=== PATIENT | female | born 1935 | race Caucasian/White ===

== ENCOUNTER 2016-08-23 13:17 | Inpatient (IN) | payer OTHER ==
[~2016-08-23] VITALS: Ht 162.6 cm; Wt 61.2 kg
--- NOTE | 2016-08-23 14:36 | DIAGNOSTIC IMAGING REPORT ---
PROCEDURE: XR CHEST 1 VIEW INDICATION: TRAUMA TECHNIQUE: Supine AP view (1350 hours). COMPARISON: Compared to chest x-ray and left ribs on 09/24/2013. FINDINGS: Lungs are clear. Heart and mediastinum are normal. Thorax is normal. There is a 4.5 cm ovoid radiopaque density overlying the left lateral axial and breast. This may be internal or external (although technologist reports nothing limited physical interrogation). IMPRESSION: 1. There is 4.5 cm radiopaque density overlying the left lateral axilla and breast (uncertain etiology). 2. Otherwise negative chest. No evidence of acute process.
--- NOTE | 2016-08-23 15:16 | DIAGNOSTIC IMAGING REPORT ---
PROCEDURE: XR HIP 2VW W W/O AP PELVIS-RT INDICATION: TRAUMA/INJURY TECHNIQUE: AP view of the pelvis and hips with lateral view of the right hip. COMPARISON: None. FINDINGS: RIGHT HIP: There is a minimally displaced oblique intertrochanteric fracture the right femur which extends into the proximal femoral shaft. Right hip joint is normal. PELVIS: Pelvis is normal. IMPRESSION: 1. There is a minimally displaced intertrochanteric fracture of the right femur which extends significantly into the proximal femoral shaft.
--- NOTE | 2016-08-23 17:30 | Consultation Report ---
Admission Admit Date 08/23/16 History Chief Complaint R hip pain History of Present Illness 80y severely demented F with well controlled DM2, HTN autoimmune hepatitis, recent loss of appitite and newly noted slurred speach was an independant ambulator who enjoyed dancing at baseline and sustained a witnessed GLF, inability to WB and R hip pain. Brought to [facility] ED x-rays showed mildly displaced R 3 part intertrochanteric hi9p fx. Daughter with POA denies hx of DVT/PE, infection. See my full dictated consult note for additional details, PMH, Social and other Hx. Patient History 1. Dementia Social History Daughter Debbie with POA, Guardian is son Abhinav. Medications and Allergies Medications see dictation Allergies Coded Allergies: Clarithromycin (08/23/16) Latex (08/23/16) Uncoded Allergies: errythromycin (08/23/16) PCN (08/23/16) Review of Systems Constitutional Denies: Fever. Neurological Other (slurred speech). Physical Exam General Appearance Alert, Cooperative, No acute distress, completely disoriented HEENT Atraumatic Extremities R LE externally rotated, tender at hip and pain with any hip ROM Skin No Breakdown, No Significant Lesions, intact at R hip and foot, normal toe hair distribution Neurological Sensation intact, fires R AD&PF & E&FHL. Psych/Mental Status Mood normal, Confused LAB Results Laboratory Tests 08/23 08/23 1705 1620 Chemistry Plasma Sodium (136 - 145 mmol/L) 142 Plasma Potassium (3.5 - 5.1 mmol/L) 3.6 Plasma Chloride (98 - 107 mmol/L) 103 CO2 (Enzymatic) (21 - 32 mmol/L) 31 BUN (7 - 18 mg/dL) 15 Creatinine (0.6 - 1.3 mg/dL) 0.9 Est GFR ( Amer) (mL/min) >60 Est GFR (Non-Af Amer) (mL/min) >60 Glucose (70 - 110 mg/dL) 132 Plasma Calcium (8.5 - 10.1 mg/dL) 8.8 Total Bilirubin (0.0 - 1.0 mg/dL) 0.3 AST (15 - 37 U/L) 38 ALT (12 - 78 U/L) 54 Alkaline Phosphatase (46 - 116 U/L) 112 Total Protein (6.4 - 8.2 g/dL) 7.8 Albumin (3.3 - 5.0 g/dL) 3.5 Coagulation INR (0.8 - 1.2) 1.0 APTT (24 - 34 SECONDS) 33 Hematology WBC (4.5 - 11.5 K/uL) 11.1 RBC (4.00 - 5.20 M/uL) 4.31 Hgb (12.0 - 16.0 gm/dL) 14.9 Hct (36.0 - 46.0 %) 45.2 MCV (80 - 100 fL) 105 MCH (26 - 34 pg) 35 RDW (11.6 - 14.8 %) 13.7 Neut % (Auto) (50 - 75 %) 88.5 Lymph % (Auto) (25 - 40 %) 5.8 Claiborne % (Auto) (3 - 14 %) 5.2 Eos % (Auto) (0 - 4 %) 0.4 Baso % (Auto) (0 - 2 %) 0.1 Plt Count, EDTA (150 - 400 K/uL) 257 PUBS MCHC (31 - 37 g/dL) 33 Urines Urine Color Pending Urine Appearance Pending Urine pH Pending Ur Specific Mackey Pending Urine Protein Pending Urine Ketones Pending Urine Blood Pending Urine Nitrite Pending Urine Bilirubin Pending Urine Urobilinogen Pending Ur Leukocyte Esterase Pending Urine RBC Pending Urine WBC Pending Ur Epithelial Cells Pending Urine Bacteria Pending Urine Glucose Pending Imaging 3 part R interitroch fx. No hip DJD. CXR clear lungs, nml mediastial structures. 4.5 cm oval density may be internal or external per radiologist report. Assessment and Plan Problem List 1. Displaced intertrochanteric fracture of right femur, initial encounter for closed fracture Onset Date 08/23/16 Status Acute Plan Admit to hospitalist for medical clearance including work up of possible syncopal event, loss of appatite and newly noted slurred speech. Consented and marked for closed reduction and internal fixation R intertrochantericv "hip:" fx. PAQRQ held with daughter and [id number]. Risks, including, bleeding, infection, , and failure to obtain the goals of decreased pain, restored WB funtion, decreased risks of DVT/PE/decubitus ulcers, pneumonia etc discussed. All questions invited and answered. Surgery planned for tomorrow mid morning assuming medically cleared. NPO after MN.
--- NOTE | 2016-08-23 17:46 | ED NURSING NOTES ---
Clinical Report - Nurses [facility] [address] [place] [address] 08/23/2016 13:16 Patient: HEATHER KAISER TRIAGE Triage time 13:19 Aug 23 2016. Acuity: LEVEL 3. Chief Complaint: FALL while standing, onto a tile surface. Alert. No acute distress. --13:28 Love Jasso R.N. 13:19 08/23/16. BP: 127/59. HR: 76. RR: 16. O2 saturation: 95%. Temp: 97.2 F. Pain level now 05/31. --13:28 Love Jasso R.N. Weight: 65.7 kg estimated. Height/Length: 65 inches Estimated. BMI: 24.1. --13:18 Love Jasso R.N. Medications Atorvastatin Calcium Oral (Tablet 40 mg) 1/2 tablet, daily. AzaTHIOprine Oral (Tablet 50 mg) 2 tablets, daily. Calcarb 600/D Oral (Tablet 600-400 mg-unit) 2 tablets, daily. Diltiazem HCl Oral 300 mg, daily. Donepezil HCl Oral (Tablet 5 mg), daily. Hydrochlorothiazide Oral (Tablet 12.5 mg) 1 tablet, daily. Hydrochlorothiazide Oral 25 mg, daily. Klor-Con Oral 10 mEq, bid (take 2 tabs). Ondansetron HCl Oral (Tablet 8 mg) 1 tablet, Q 8hrs. Sertraline HCl Oral (Tablet 50 mg) 1 tablet, daily. Ventolin HFA Inhalation 2 puffs, Q 4-6hrs. Vitamin B-12 Oral (Tablet 500 mcg) 1 tablet, daily. Vitamin D3 Oral (Tablet 1000 unit) 2 tablets, daily. --13:24 Love Jasso R.N. Allergies Clarithromycin. Erythromycin. Latex. Penicillins. --13:24 Love Jasso R.N. History Arrived by EMS. Historian: patient. ( Medics brought in a GLF from [facility]. Pt was in [facility], fell, witnessed, no LOC. C/O Right Hip pain on arrival, pt in a position of comfort on her side. Pt's baseline is Dementia.). This occurred just prior to arrival. She has had altered mental status and trouble walking. She has had right leg pain. 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 Trauma activation: Pre-hospital notification of patient arrival was received. SOCIAL HX: Never smoker. No alcohol use or drug use. No infectious disease exposure. FALL RISK ASSESSMENT: Fall risk assessment completed. Risk factors identified include patient age greater than 65 years, history of fall and impairment of mobility. --13:28 Love Jasso R.N. PROBLEMS: Depression. Autoimmune hepatitis. Diabetes Mellitus Type 2. Rheumatoid Arthritis. Hypercholesterolemia. Hyperlipidemia. Dementia. Hypertension. Fall. Contusion. --13:26 Love Jasso R.N. Interventions ID band on patient. To room. --13:28 Love Jasso R.N. NURSING PROGRESS NOTES Patient ready for evaluation- ED physician notified. --13:28 Love Jasso R.N. Patient transported to radiology by stretcher with tech. (13:48 Aug 23 2016). --13:48 Love Jasso R.N. ( pt moved to room 13 for better visual by staff.). --13:48 Love Jasso R.N. Patient returned from radiology by stretcher with tech. (13:55 Aug 23 2016). --14:39 Love Jasso R.N. 14:56 08/23/16. HR: 73. O2 saturation: 90%. --14:56 Love Jasso R.N. The patient is resting quietly and sleeping. --14:56 Love Jasso R.N. 16:23 08/23/2016 Site #1 started via IV in the right antecubital space with an 20g angiocath; one attempt. Blood drawn: rainbow set. Labeled in the presence of the patient. Saline lock flushed with 5 mL saline. --16:23 Love Jasso R.N. 16:42 08/23/2016 Started bag #1 1000 mL IV Fluids IV NS (Saline); at 150 mL/hr over 4 hour(s) via site #1 via IV pump. Allergies verified and confirmed 5 rights. IV patency established. IV site checked: no pain, redness, or swelling. IV flushed thoroughly pre- and post-medication administration. --16:42 Debbie Ennis R.N. 17:11 08/23/16. Quiroga catheter. Return of yellow-colored clear urine. She tolerated procedure well. Checked patient name and birthdate: family confirmed. Catheterized urine collected; sample sent to lab for urinalysis. Specimen labeled in the presence of the patient. --17:11 Debbie Ennis R.N. 17:54 08/23/16. BP: 133/77. HR: 86. RR: 16. O2 saturation: 96% on room air. Temp: 98 F. --17:54 [place] 19:39 08/23/2016 Site #[address] upon admission; patent, no pain and no signs of infection or infiltration. --19:39 Debbie Ennis R.N. 19:39 08/23/2016 IV Fluids IV NS Continued: upon admission at the rate of 150 mL/hr. 650 mL remaining bag #1. IV patency established. IV site checked: no pain, redness, or swelling. IV flushed thoroughly. --19:39 Debbie Ennis R.N. DISPOSITION / DISCHARGE Departure time: 19:20 Aug 23 2016. Condition at departure: improved and stable. Admitted to Acute Care. Transported via stretcher by nurse. Report was given to a nurse via a phone call. Report included patient's care, treatment, medications, reviewed medication reconcilliation, and condition (including any recent changes or anticipated changes). All questions were answered. Report was acknowledged and care was transferred. (Mauro RN). Patient's personal items include, blanket, shahbaz shirt, doll; items were transported with the patient. She did not have glasses, contacts or a hearing aid. --19:25 Debbie Ennis R.N. 19:20 08/23/16. BP: 151/78. HR: 82. RR: 18. O2 saturation: 95%. Temp: 97.9 F. Pain level now unable to obtain. --19:25 Debbie Ennis R.N. Locked/Released at 08/23/2016 19:39 by Debbie Ennis R.N.
--- NOTE | 2016-08-23 17:46 | ED CLINICAL REPORT ---
Clinical Report - Physicians/Mid Levels [facility] [address] [place] [address] 08/23/2016 13:16 Patient: HEATHER KAISER Time Seen: 13:43; initial patient contact. Arrived- By ambulance. Historian- family. History limited by dementia. Physical Exam limited by dementia. HISTORY OF PRESENT ILLNESS Chief Complaint: FALL. RIGHT HIP INJURY. The injury occurred just prior to arrival. Occurred at a longterm. Fell and landed on the ground; tripped. The patient complains of mild pain in the right lower extremity (hip). No blow to the head or loss of consciousness. REVIEW OF SYSTEMS No numbness, headache, loss of vision, chest pain or weakness. No difficulty breathing or laceration. All systems otherwise negative, except as recorded above. PAST HISTORY Depression. Autoimmune hepatitis. Diabetes Mellitus Type 2. Rheumatoid Arthritis. Hypercholesterolemia. Hyperlipidemia. Dementia. Hypertension. Fall. Contusion. SOCIAL HISTORY Never smoker. No alcohol use or drug use. ADDITIONAL NOTES The nursing notes have been reviewed with agreement regarding the chief complaint, PMH and patient medications and allergies. PHYSICAL EXAM Vital Signs: 08/23/2016 13:19 BP: 127/59. HR: 76. RR: 16. O2 saturation: 95%. Temp: 97.2 F. Have been reviewed as normal. Appearance: Alert. Appears to be in pain. Head: Head non-tender. No swelling of head. Eyes: Pupils equal, round and reactive to light. EOM intact. ENT: Dry mucous membranes present. Neck: Painless ROM. Non-tender. CVS: Heart sounds normal. Rate normal. Rhythm normal. Respiratory: No respiratory distress. Breath sounds normal. Chest nontender. Abdomen: No visible injury. Soft and nontender. Bowel sounds normal. No organomegaly. No mass. Skin: Skin intact. Skin warm and dry. Normal skin color. Normal skin turgor. Extremities: Right hip: moderate tenderness located in the anterior and medial aspect of the hip. The right leg is shortened and externally rotated. Limited ROM secondary to pain (diminished abduction, adduction, flexion, extension and external and internal rotation). Neurovascular intact distally. No lower extremity edema. Neuro: Mildly altered mental status: confused and disoriented to place and time. Eyes open spontaneously. Best verbal response: disoriented. Best motor response: obeys commands. No motor deficit. LABS, X-RAYS, AND EKG EKG: EKG time: (16:39). No acute process. No acute ischemia. Normal sinus rhythm. Rate: 83. Normal P waves. Normal ELLEN. Normal QRS complex. Normal axis. Normal ST and T waves, QT and QTc. Prior EKG unavailable. The EKG appears to be a good tracing. Interpretation time: 1640. Chest X-ray: (1. There is 4.5 cm radiopaque density overlying the left lateral axilla and breast (uncertain etiology).). Views: AP. The X-rays were independently viewed by me, interpreted by the radiologist and discussed with the radiologist. Interpretation time: 1500. Rt Hip X-ray: Displaced, transverse intertrochanteric fracture of the right hip. (1. There is a minimally displaced intertrochanteric fracture of the right femur which extends significantly into the proximal femoral shaft.). Technique: good. The X-rays were independently viewed by me, interpreted by the radiologist and contemporaneously by me and discussed with the radiologist. Prior films were not available for comparison. Interpretation time: 1445. Laboratory Tests: CBC w Diff: (KATIE: 08/23/2016 16:20) ( MsgRcvd 08/23/2016 16:32) Final results Test Result Flag Units (Reference) WHITE BLOOD COUNT 11.1 K/uL (4.5-11.5) RED BLOOD COUNT 4.31 M/uL (4.00-5.20) HEMOGLOBIN 14.9 gm/dL (12.0-16.0) HEMATOCRIT 45.2 % (36.0-46.0) MEAN CELL VOLUME 105 H fL (80-100) MEAN CORPUSCULAR HGB 35 H pg (26-34) MEAN CORPUSCULAR HGB CONC 33 g/dL (31-37) RED CELL DISTRIBUTION WIDTH 13.7 % (11.6-14.8) PLATELET COUNT 257 K/uL (150-400) NEUTROPHIL % 88.5 H % (50-75) LYMPH % 5.8 L % (25-40) MONO % 5.2 % (3-14) EOSINOPHIL % 0.4 % (0-4) BASOPHIL % 0.1 % (0-2) PT with INR: (KATIE: 08/23/2016 16:20) ( MsgRcvd 08/23/2016 16:37) Final results Test Result Flag Units (Reference) INR 1.0 (0.8-1.2) Low Intensity Therapy: INR 1.5-2.0 PT range 18.5-23.1Mod.Intensity Therapy: INR 2.0-3.0 PT range 23.1-31.5High Intensity Therapy: INR 2.5-3.5 PT range 27.4-35.5High Intensity Therapy 2: INR 3.0-4.0 PT range 31.5-39.3 APTT 33 SECONDS (24-34) . PROGRESS AND PROCEDURES Discussed case with hospitalist, (call returned 17:47 Dr. Gilbert). Reviewed test results and need for additional work-up. Health care provider will see patient in ED. Consult obtained from orthopedics. call returned 15:35. Dr. Walden, asked for Hospitalist to admit and he will consult. Case discussed. Phone consult only. Will see patient in the hospital. Disposition: Condition: good and stable. CLINICAL IMPRESSION 08/23/2016 13:19 BP: 127/59. HR: 76. RR: 16. O2 saturation: 95%. Temp: 97.2 F. Vital Signs: have been reviewed as normal. Closed displaced oblique intertrochanteric fracture of the right femur. Mild dehydration. (Electronically signed by Richard Escobedo Dr. 08/23/2016 21:34)
--- NOTE | 2016-08-23 17:47 | ED ORDER SUMMARY ---
..... Patient: HEATHER KAISER OrderSheet [facility] VisitID: [id number] [place] [address] 80y, F Registration Date/Time: 08/23/2016 ORDER SHEET Weight: 65.7 kg (estimated) Allergies: Clarithromycin, Erythromycin, Latex, Penicillins GENERAL ORDERS: Pelvis 3V or more (GLF from group home) Urgent (13:34 08/23/2016 SBalde R.N. per protocol) (Cancelled: Physician Order13:36 SBalde R.N.) Hip 2V Right w AP Pelvis (GLF) Urgent (13:35 08/23/2016 SBalde R.N. per protocol) (Ack 13:41 LTapper) (13:56 MWinterer R.N.) Chest 1V Urgent (13:48 08/23/2016 MWinterer R.N. per protocol) (Ack 13:51 LTapper) (13:56 MWinterer R.N.) CBC w Diff Urgent (15:44 08/23/2016 Marco A Alfaro) (Ack 15:46 IJurca ER Tech1) (16:39 SBalde R.N.) CMP Urgent (15:44 08/23/2016 Marco A Alfaro) (Ack 15:46 IJurca ER Tech1) (16:39 SBalde R.N.) PT with INR Urgent (15:44 08/23/2016 Marco A Alfaro) (Ack 15:46 IJurca ER Tech1) (16:39 SBalde R.N.) PTT Urgent (15:44 08/23/2016 Marco A Alfaro) (Ack 15:46 IJurca ER Tech1) (16:39 SBalde R.N.) NPO (15:44 08/23/2016 Marco A Alfaro) (15:45 IJurca ER Tech1) EKG - ER Stat (15:44 08/23/2016 Marco A Alfaro) (Ack 15:46 IJurca ER Tech1) (15:56 IJurca ER Tech1) UA-Culture if indicated Urgent (16:34 08/23/2016 Marco A Alfaro) (Ack 16:35 IJurca ER Tech1) (17:10 MWinterluis manuel R.N.) Quiroga Catheter (17:09 08/23/2016 Eunice RCarlinN. verbal order read back to Marco A Alfaro) (17:09 NIECYinterluis manuel R.N.) MEDICATION ORDERS: IV FLUIDS: IV NS : initial bolus none -, then 150 mL/hr for X1 (NOW) (15:43 08/23/2016 Marco A Alfaro) (Ack 16:39 Brissa Hope) (16:42 MWinterluis manuel R.N.) ORDER SHEET NOTES: [Electronically signed by Debbie Ennis R.N. (19:39 08/23/2016)] [Electronically signed by Richard Escobedo Dr. (21:34 08/23/2016)] [Electronically locked/signed by Debbie Ennis R.N. (19:39 08/23/2016)]
--- NOTE | 2016-08-23 17:47 | ED ORDER SUMMARY ---
..... Patient: HEATHER KAISER OrderSheet [facility] VisitID: [id number] [place] [address] 80y, F Registration Date/Time: 08/23/2016 ORDER SHEET Weight: 65.7 kg (estimated) Allergies: Clarithromycin, Erythromycin, Latex, Penicillins GENERAL ORDERS: Pelvis 3V or more (GLF from shelter) Urgent (13:34 08/23/2016 SBalde R.N. per protocol) (Cancelled: Physician Order13:36 SBalde R.N.) Hip 2V Right w AP Pelvis (GLF) Urgent (13:35 08/23/2016 SBalde R.N. per protocol) (Ack 13:41 LTapper) (13:56 MWinterer R.N.) Chest 1V Urgent (13:48 08/23/2016 MWinterer R.N. per protocol) (Ack 13:51 LTapper) (13:56 MWinterer R.N.) CBC w Diff Urgent (15:44 08/23/2016 Marco A Alfaro) (Ack 15:46 IJurca ER Tech1) (16:39 SBalde R.N.) CMP Urgent (15:44 08/23/2016 Marco A Alfaro) (Ack 15:46 IJurca ER Tech1) (16:39 SBalde R.N.) PT with INR Urgent (15:44 08/23/2016 Marco A Alfaro) (Ack 15:46 IJurca ER Tech1) (16:39 SBalde R.N.) PTT Urgent (15:44 08/23/2016 Marco A Alfaro) (Ack 15:46 IJurca ER Tech1) (16:39 SBalde R.N.) NPO (15:44 08/23/2016 Marco A Alfaro) (15:45 IJurca ER Tech1) EKG - ER Stat (15:44 08/23/2016 Marco A Alfaro) (Ack 15:46 IJurca ER Tech1) (15:56 IJurca ER Tech1) UA-Culture if indicated Urgent (16:34 08/23/2016 Marco A Alfaro) (Ack 16:35 IJurca ER Tech1) (17:10 MWinterluis manuel R.N.) Quiroga Catheter (17:09 08/23/2016 Eunice RCarlinN. verbal order read back to Marco A Alfaro) (17:09 NIECYinterluis manuel R.N.) MEDICATION ORDERS: IV FLUIDS: IV NS : initial bolus none -, then 150 mL/hr for X1 (NOW) (15:43 08/23/2016 Marco A Alfaro) (Ack 16:39 Brissa Hope) (16:42 MWinterluis manuel R.N.) ORDER SHEET NOTES: [Electronically signed by Debbie Ennis R.N. (19:39 08/23/2016)] [Electronically signed by Richard Escobedo Dr. (21:34 08/23/2016)] [Electronically locked/signed by Debbie Ennis R.N. (19:39 08/23/2016)]
--- NOTE | 2016-08-23 18:50 | CONSULTATION REPORT ---
DATE OF CONSULTATION: 08/23/2016 DATE OF CONSULTATION: 08/23/16 REFERRING PHYSICIAN: Dr. Richard Escobedo [facility] Emergency Department. REASON FOR CONSULTATION: Right intertrochanteric femur fracture. HISTORY OF PRESENT ILLNESS: An 80-year-old severely demented retirement facility independent ambulator who enjoys dancing appeared to lose her appetite approximately 2 days ago and stop eating at that time. She has had only a glass of water yesterday. Most recently, she was witnessed to have a ground level fall and was found to have slurred speech by her daughter with power of erisa attorney here in the emergency department, where she was brought and x-rays confirmed the presence of a 3-part minimally displaced right intertrochanteric femur fracture. There is no significant degenerative joint disease in the hip and no other fractures are appreciated on the x-ray. MEDICAL/SURGICAL HISTORY: Also significant for type 2 diabetes, which her daughter report is well controlled, depression, and some autoimmune conditions, essential hypertension, cervical dysplasia, hyperlipidemia, hypercholesterolemia, senile psychosis, rheumatoid arthritis, autoimmune hepatitis, osteoporosis, Alzheimer dementia. MEDICATIONS: OUTSIDE MEDICATIONS: Are as documented in the emergency physician' s note and per his report do not include any anticoagulants. 1. Diltiazem CD 300 mg capsule once daily. 2. Potassium chloride extended release 20 mEq tablet once daily. 3. Quetiapine fumarate 25 mg tablets 1 at bedtime for anxiety. 4. Sertraline 50 mg tablet once daily [facility] medications [facility] include: 1. Tylenol. 2. Bisac-Evac 10 mg suppository p.r.n. constipation. 3. Cranberry tablets 2 by mouth 3 times daily as needed for UTI prevention. 4. Docusate sodium 100 mg soft gel 1 capsule twice daily as needed for constipation. 5. Ondansetron 8 mg tablet by mouth every 8 hours as needed for nausea or vomiting. 6. Senna 8.6 mg tablets twice daily as needed for constipation. ALLERGIES: 1. PENICILLIN WITH UNKNOWN REACTION, BUT KNOWN NOT TO BE ANAPHYLAXIS. 2. SHE ALSO HAS REACTION TO ERYTHROMYCIN. 3. SENSITIVE TO LATEX. 4. CLARITHROMYCIN, REACTION IS NOT KNOWN. PRIMARY CARE PHYSICIAN: Dr. Nahid Escobedo, phone number [phone]. SOCIAL HISTORY: The patient's guardian is her son Magaly Cooper. Phone number is [phone]. She has advance directives, which indicate she would like antibiotic use to be a limited for comfort as goal and no medically assisted nutrition by tube. REVIEW OF SYSTEMS: Otherwise, unable to be obtained. PHYSICAL EXAMINATION: VITAL SIGNS: Blood pressure 114/68, pulse 80, respiratory rate 18, pulse oximetry 97% on room air. GENERAL: The patient appears to be alert, but completely disoriented to date and situation. She cannot even repeat back the date once told it. She does not know who the President is. A fingerstick blood sugar was 176. She is lying on the gurney with her left hip and knee flexed. EXTREMITIES: Right leg is extended. She is able to fire right ankle dorsiflexors , plantar flexors, EHL and FHL. Sensation appears to be intact in the right foot. She has normal hair growth and a 2+ dorsalis pedis pulse. The skin around the right hip appears to be intact. She is tender to palpation and has pain with any motion of the right hip. LAB/IMAGING: X-rays show a minimally displaced intertrochanteric femur fracture with slight valgus alignment and displacement best seen on the lateral view. The greater trochanter is a separate fragment. The principle fracture line is at the base of the neck. The lesser trochanter does not appear to be a fracture off of the shaft. Electrocardiogram shows a normal sinus rhythm with a rate of 83. ND interval 0.184. QRS 0.072, QT over QTc 0.372 over 0.437. There are nonspecific ST and T-wave abnormalities, but overall does not appear to have any acute changes. Chest x-ray shows no acute infiltrate or congestive heart failure. There is a report of a 4.5 cm radiopaque density overlying the left lateral axilla and breast of uncertain etiology, which is felt possibly may represent an external or internal stricture. The radiologist felt the lungs were clear and the mediastinum was normal, with the thorax being normal as well. Labs show a white blood cell count of 11.1, hemoglobin 14.9, hematocrit 45.2. Mean cell volume is elevated at 105. Mean cell hemoglobin elevated at 35. Differential is noteworthy for increased percent neutrophils of 88.5 and decreased percent lymphocytes of 5.8. INR is 1.0. Platelet count is 257,000. APTT 33. Electrolytes are within normal limits with sodium 142, potassium 3.6, chloride 103, CO2 of 31, BUN 15, creatinine 0.9, glucose 132. Plasma calcium 8.8, total bilirubin 0.3, AST mildly elevated at 38, ALT normal at 54, alkaline phosphatase 112, total protein 7.8, albumin 3.5. IMPRESSION: 1. A three-part minimally displaced right intertrochanteric proximal femur fracture. 2. Dementia. 3. Type 2 diabetes, apparently well controlled. 4. Unknown reason for fall and new slurring of speech and a recent loss of appetite. PLAN: I have marked her left hip with my initials and I have obtained consent for a closed reduction and internal fixation, likely with a cephalomedullary device versus a sliding hip screw and side plate from her daughter who has power of erisa attorney. We discussed the goals of surgery to minimize pain and allow mobilization and minimize the risks of bed rest including thromboembolic disease, aspiration pneumonia, decubiti, etc. I have explained that the surgery will have to be done after she is medically cleared and given the uncertain circumstances of her fall, we will anticipate doing this tomorrow. She will be admitted to the Hospitalist Service. Risks including but not limited to bleeding, infection, nerve damage, failure to obtain the goals of surgery listed above and others including during the hospitalization and beyond were discussed. All questions were invited and answered. The patient's daughter freely and willingly signed the consent with power of erisa attorney and it was witnessed by her [email or web address].
--- NOTE | 2016-08-23 18:50 | CONSULTATION REPORT ---
DATE OF CONSULTATION: 08/23/2016 DATE OF CONSULTATION: 08/23/16 REFERRING PHYSICIAN: Dr. Richard Escobedo [facility] Emergency Department. REASON FOR CONSULTATION: Right intertrochanteric femur fracture. HISTORY OF PRESENT ILLNESS: An 80-year-old severely demented assisted facility independent ambulator who enjoys dancing appeared to lose her appetite approximately 2 days ago and stop eating at that time. She has had only a glass of water yesterday. Most recently, she was witnessed to have a ground level fall and was found to have slurred speech by her daughter with power of district attorney here in the emergency department, where she was brought and x-rays confirmed the presence of a 3-part minimally displaced right intertrochanteric femur fracture. There is no significant degenerative joint disease in the hip and no other fractures are appreciated on the x-ray. MEDICAL/SURGICAL HISTORY: Also significant for type 2 diabetes, which her daughter report is well controlled, depression, and some autoimmune conditions, essential hypertension, cervical dysplasia, hyperlipidemia, hypercholesterolemia, senile psychosis, rheumatoid arthritis, autoimmune hepatitis, osteoporosis, Alzheimer dementia. MEDICATIONS: OUTSIDE MEDICATIONS: Are as documented in the emergency physician' s note and per his report do not include any anticoagulants. 1. Diltiazem CD 300 mg capsule once daily. 2. Potassium chloride extended release 20 mEq tablet once daily. 3. Quetiapine fumarate 25 mg tablets 1 at bedtime for anxiety. 4. Sertraline 50 mg tablet once daily PRN medications from the snf include: 1. Tylenol. 2. Bisac-Evac 10 mg suppository p.r.n. constipation. 3. Cranberry tablets 2 by mouth 3 times daily as needed for UTI prevention. 4. Docusate sodium 100 mg soft gel 1 capsule twice daily as needed for constipation. 5. Ondansetron 8 mg tablet by mouth every 8 hours as needed for nausea or vomiting. 6. Senna 8.6 mg tablets twice daily as needed for constipation. ALLERGIES: 1. PENICILLIN WITH UNKNOWN REACTION, BUT KNOWN NOT TO BE ANAPHYLAXIS. 2. SHE ALSO HAS REACTION TO ERYTHROMYCIN. 3. SENSITIVE TO LATEX. 4. CLARITHROMYCIN, REACTION IS NOT KNOWN. PRIMARY CARE PHYSICIAN: Dr. Nahid Escobedo, phone number [phone]. SOCIAL HISTORY: The patient's guardian is her son Magaly Cooper. Phone number is [phone]. She has advance directives, which indicate she would like antibiotic use to be a limited for comfort as goal and no medically assisted nutrition by tube. REVIEW OF SYSTEMS: Otherwise, unable to be obtained. PHYSICAL EXAMINATION: VITAL SIGNS: Blood pressure 114/68, pulse 80, respiratory rate 18, pulse oximetry 97% on room air. GENERAL: The patient appears to be alert, but completely disoriented to date and situation. She cannot even repeat back the date once told it. She does not know who the President is. A fingerstick blood sugar was 176. She is lying on the gurney with her left hip and knee flexed. EXTREMITIES: Right leg is extended. She is able to fire right ankle dorsiflexors , plantar flexors, EHL and FHL. Sensation appears to be intact in the right foot. She has normal hair growth and a 2+ dorsalis pedis pulse. The skin around the right hip appears to be intact. She is tender to palpation and has pain with any motion of the right hip. LAB/IMAGING: X-rays show a minimally displaced intertrochanteric femur fracture with slight valgus alignment and displacement best seen on the lateral view. The greater trochanter is a separate fragment. The principle fracture line is at the base of the neck. The lesser trochanter does not appear to be a fracture off of the shaft. Electrocardiogram shows a normal sinus rhythm with a rate of 83. UT interval 0.184. QRS 0.072, QT over QTc 0.372 over 0.437. There are nonspecific ST and T-wave abnormalities, but overall does not appear to have any acute changes. Chest x-ray shows no acute infiltrate or congestive heart failure. There is a report of a 4.5 cm radiopaque density overlying the left lateral axilla and breast of uncertain etiology, which is felt possibly may represent an external or internal stricture. The radiologist felt the lungs were clear and the mediastinum was normal, with the thorax being normal as well. Labs show a white blood cell count of 11.1, hemoglobin 14.9, hematocrit 45.2. Mean cell volume is elevated at 105. Mean cell hemoglobin elevated at 35. Differential is noteworthy for increased percent neutrophils of 88.5 and decreased percent lymphocytes of 5.8. INR is 1.0. Platelet count is 257,000. APTT 33. Electrolytes are within normal limits with sodium 142, potassium 3.6, chloride 103, CO2 of 31, BUN 15, creatinine 0.9, glucose 132. Plasma calcium 8.8, total bilirubin 0.3, AST mildly elevated at 38, ALT normal at 54, alkaline phosphatase 112, total protein 7.8, albumin 3.5. IMPRESSION: 1. A three-part minimally displaced right intertrochanteric proximal femur fracture. 2. Dementia. 3. Type 2 diabetes, apparently well controlled. 4. Unknown reason for fall and new slurring of speech and a recent loss of appetite. PLAN: I have marked her left hip with my initials and I have obtained consent for a closed reduction and internal fixation, likely with a cephalomedullary device versus a sliding hip screw and side plate from her daughter who has power of district attorney. We discussed the goals of surgery to minimize pain and allow mobilization and minimize the risks of bed rest including thromboembolic disease, aspiration pneumonia, decubiti, etc. I have explained that the surgery will have to be done after she is medically cleared and given the uncertain circumstances of her fall, we will anticipate doing this tomorrow. She will be admitted to the Hospitalist Service. Risks including but not limited to bleeding, infection, nerve damage, failure to obtain the goals of surgery listed above and others including during the hospitalization and beyond were discussed. All questions were invited and answered. The patient's daughter freely and willingly signed the consent with power of district attorney and it was witnessed by her [id number].
[2016-08-23 20:09] VITALS: BP 167/77
[2016-08-23] MEDS ORDERED: DILTIAZEM CD PO (20:27)
[2016-08-23] MEDS ORDERED: SERTRALINE HCL50 MG PO (20:28)
[2016-08-23] MEDS ORDERED: SEROQUEL25 MG PO (20:28)
[2016-08-23] MEDS ORDERED: POTASSIUM CHLO10 ME2 PO (20:28)
[2016-08-23] MEDS ORDERED: ACETAMINOPHEN325 MG PO (20:29)
[2016-08-23] MEDS ORDERED: BISAC-EVAC10 MG PR (20:30)
[2016-08-23] MEDS ORDERED: CRANBERRY (20:31)
[2016-08-23] MEDS ORDERED: DOCUSATE SODIU100 MG PO ×2 (20:31→20:36)
[2016-08-23] MEDS ORDERED: ONDANSETRON ODT4 MG PO (20:32)
[2016-08-23] MEDS ORDERED: SENNA-LAX8.6 MG PO (20:33)
--- NOTE | 2016-08-23 21:35 | ED MED RECONCILIATION SUMMARY ---
Patient: HEATHER KAISER Medication Reconciliation Report [facility] VisitID: [id number] [address] [place] [address] 80y, F Registration Date/Time: 08/23/2016 Weight: 65.7 kg Height/Length: 65 in. BMI: 24.1 ALLERGIES: Clarithromycin, Erythromycin, Latex, Penicillins The patient's Home Medications are listed below: THE FOLLOWING MEDICATIONS NEED TO BE RECONCILED: Atorvastatin Calcium Oral (40 mg) 1/2 tablet, daily AzaTHIOprine Oral (50 mg) 2 tablets, daily Calcarb 600/D Oral (600-400 mg-unit) 2 tablets, daily Diltiazem HCl Oral 300 mg, daily Donepezil HCl Oral (5 mg), daily Hydrochlorothiazide Oral (12.5 mg) 1 tablet, daily Hydrochlorothiazide Oral 25 mg, daily Klor-Con Oral 10 mEq, bid, take 2 tabs Ondansetron HCl Oral (8 mg) 1 tablet, Q 8hrs Sertraline HCl Oral (50 mg) 1 tablet, daily Ventolin HFA Inhalation 2 puffs, Q 4-6hrs Vitamin B-12 Oral (500 mcg) 1 tablet, daily Vitamin D3 Oral (1000 unit) 2 tablets, daily The source(s) of the original Home Medication information: Not obtained. The following Medications were given to the patient in the Emergency Department: IV NS IV Fluids bolus 0, then 150 mL/hr, administered: 08/23/2016 4:42:00 PM The following Medications were prescribed to the patient: None.
--- NOTE | 2016-08-23 21:35 | ED MAR SUMMARY ---
..... Medication Administration Record [facility] [address] [place] [address] Patient: HEATHER KAISER Visit ID: [id number] 80y, F Weight: 65.7 kg Height/Length: 65 in BMI: 24.1 ALLERGIES: Clarithromycin, Erythromycin, Latex, Penicillins Start 16:42 08/23/2016 Debbie Ennis RCarlinNCarlin, Continued Upon Admission 19:39 08/23/2016 Debbie Ennis RCarlinN. Medication Administered: IV NS (SALINE), Dose: IV Fluids over 4 hour(s), Rate: 150 mL/hr, Dispensed: 1000 mL bag, Site: #1 right AC. Medication Ordered: IV NS : initial bolus none -, then 150 mL/hr for X1 (NOW).
--- NOTE | 2016-08-23 21:35 | ED MAR SUMMARY ---
..... Medication Administration Record [facility] [address] [place] [address] Patient: HEATHER KAISER Visit ID: [id number] 80y, F Weight: 65.7 kg Height/Length: 65 in BMI: 24.1 ALLERGIES: Clarithromycin, Erythromycin, Latex, Penicillins Start 16:42 08/23/2016 Debbie Ennis RCarlinNCarlin, Continued Upon Admission 19:39 08/23/2016 Debbie Ennis RCarlinN. Medication Administered: IV NS (SALINE), Dose: IV Fluids over 4 hour(s), Rate: 150 mL/hr, Dispensed: 1000 mL bag, Site: #1 right AC. Medication Ordered: IV NS : initial bolus none -, then 150 mL/hr for X1 (NOW).
--- NOTE | 2016-08-23 21:35 | ED DISCHARGE INSTRUCTIONS ---
Patient: HEATHER KAISER General Instructions [facility] VisitID: [id number] [address] [place] [address] 80y, F Registration Date/Time: 08/23/2016 08/23/2016 13:19 BP: 127/59. HR: 76. RR: 16. O2 saturation: 95%. Temp: 97.2 F. Vital Signs: have been reviewed as normal. Closed displaced oblique intertrochanteric fracture of the right femur. Mild dehydration. (Electronically signed by Richard Escobedo Dr. 08/23/2016 21:34)
--- NOTE | 2016-08-23 21:35 | ED MED RECONCILIATION SUMMARY ---
Patient: HEATHER KAISER Medication Reconciliation Report [facility] VisitID: [id number] [address] [place] [address] 80y, F Registration Date/Time: 08/23/2016 Weight: 65.7 kg Height/Length: 65 in. BMI: 24.1 ALLERGIES: Clarithromycin, Erythromycin, Latex, Penicillins The patient's Home Medications are listed below: THE FOLLOWING MEDICATIONS NEED TO BE RECONCILED: Atorvastatin Calcium Oral (40 mg) 1/2 tablet, daily AzaTHIOprine Oral (50 mg) 2 tablets, daily Calcarb 600/D Oral (600-400 mg-unit) 2 tablets, daily Diltiazem HCl Oral 300 mg, daily Donepezil HCl Oral (5 mg), daily Hydrochlorothiazide Oral (12.5 mg) 1 tablet, daily Hydrochlorothiazide Oral 25 mg, daily Klor-Con Oral 10 mEq, bid, take 2 tabs Ondansetron HCl Oral (8 mg) 1 tablet, Q 8hrs Sertraline HCl Oral (50 mg) 1 tablet, daily Ventolin HFA Inhalation 2 puffs, Q 4-6hrs Vitamin B-12 Oral (500 mcg) 1 tablet, daily Vitamin D3 Oral (1000 unit) 2 tablets, daily The source(s) of the original Home Medication information: Not obtained. The following Medications were given to the patient in the Emergency Department: IV NS IV Fluids bolus 0, then 150 mL/hr, administered: 08/23/2016 4:42:00 PM The following Medications were prescribed to the patient: None.
--- NOTE | 2016-08-23 21:35 | ED DISCHARGE INSTRUCTIONS ---
Patient: HEATHER KAISER General Instructions [facility] VisitID: [id number] [address] [place] [address] 80y, F Registration Date/Time: 08/23/2016 08/23/2016 13:19 BP: 127/59. HR: 76. RR: 16. O2 saturation: 95%. Temp: 97.2 F. Vital Signs: have been reviewed as normal. Closed displaced oblique intertrochanteric fracture of the right femur. Mild dehydration. (Electronically signed by Richard Escobedo Dr. 08/23/2016 21:34)
--- NOTE | 2016-08-23 23:03 | HISTORY AND PHYSICAL ---
ADMITTED: 08/23/2016 PRIMARY CARE PHYSICIAN: Nahid Escobedo DO HISTORY OF PRESENT ILLNESS: This is an 80-year-old female with the history of severe Alzheimer dementia, presenting to the emergency department after she reportedly had a witnessed fall, landing and breaking her hip. The patient has had a slight runny nose over the last couple of days and she has had decreased eating and drinking, per the family. The patient does not answer questions appropriately when questioned. MEDICAL/SURGICAL HISTORY: Past medical history: Type 2 diabetes, autoimmune hepatitis, rheumatoid arthritis, dyslipidemia, dementia, hypertension. Past surgical history: Unable to obtain as I am unable to get a hold of the family and patient is not answering questions appropriately. Reported by family on her history and physical intake form, liver biopsy in 2001. MEDICATIONS: It does appear that many of her medications have been stopped; however, she remains on: 1. Seroquel 25 mg p.o. at bedtime. 2. Diltiazem CD 300 mg p.o. daily. 3. Potassium 20 mEq p.o. daily. 4. Zofran 8 mg p.o. q.8 hours p.r.n. nausea. 5. Sertraline 50 mg p.o. daily. 6. Senna as needed. 7. Colace as needed. 8. Tylenol as needed. 9. Cranberry tablets as needed. ALLERGIES: PER HER CHART: 1. PENICILLIN. 2. ERYTHROMYCIN. 3. LATEX. SOCIAL HISTORY: The patient lives at [facility], other than that, unable to obtain as I am unable to get a hold of the family. The patient has a twelfth grade education. Family denies any alcohol, drug, or smoking history. FAMILY HISTORY: Unable to obtain. Reported on intake form, sibling with diabetes , one daughter with high blood pressure and dyslipidemia, son with high blood pressure and dyslipidemia and another son with dyslipidemia. REVIEW OF SYSTEMS: Unable to obtain due to severe dementia. PHYSICAL EXAMINATION: VITAL SIGNS: Blood pressure 167/77, pulse of 70, respiratory rate is 16, O2 saturation 95% on room air, T-max is 36.9 degrees Celsius. GENERAL: This is an elderly and confused female lying in bed in no apparent distress. HEENT: Head is atraumatic, normocephalic. Pupils are equal, round, and reacted to light with accommodation bilaterally. Oropharynx is nonerythematous without exudates. Trachea is midline. NECK: There is no JVD. HEART: S1, S2, regular rate and rhythm. No S3, S4, gallops, or rubs. There is a 2/6 systolic murmur increased at the base. LUNGS: Clear to auscultation bilaterally. ABDOMEN: Soft, nontender, nondistended without hepatosplenomegaly or masses. Bowel sounds are active. EXTREMITIES: There is no peripheral edema. Right hip is externally rotated. LAB/IMAGING: Laboratories: White blood cell count of 11.1, hemoglobin of 14.9, hematocrit of 45.9, platelets of 257,000. INR of 1.0. UA is negative. Sodium of 142, potassium 3.6, chloride of 103, bicarb of 31, BUN of 15, creatinine of 0.9, glucose of 132, calcium of 8.8, total protein of 7.8. Albumin of 3.5, total bilirubin is 0.3, alk phos of 112, AST of 38, ALT of 54. Other studies: Hip x-ray: Shows a right intertrochanteric fracture. Chest x-ray: Shows a density in the left axilla or breast, which actually turned out to be a rock in the patient's pocket. EKG: Shows normal sinus rhythm at 83 beats per minute with a QTc of 437, no ST or T-wave abnormalities and no Q-waves. IMPRESSION: 1. This is an 80-year-old female with severe dementia, presenting to the hospital after a witnessed fall resulting in a right intertrochanteric fracture. PLAN: 1. Fluids, electrolytes, nutrition: The patient will be put on a consistent carbohydrate cardiac diet until midnight and then she will be n.p.o. after midnight in anticipation of likely surgery in the morning. 2. Cardiac: The patient does have a reported history of high blood pressure and dyslipidemia; however, has apparently been taken off all these medications except for diltiazem. We will monitor her blood pressure carefully. 3. Gastrointestinal: The patient reportedly has anemia and hepatitis. Her LFTs and bilirubin are normal. We will monitor closely. 4. Endocrine: The patient reportedly has type 2 diabetes. She is not on any diabetic medications. She will be on a consistent carbohydrate diet until she is n.p.o. and then would recommend that after surgery as well rechecking a hemoglobin A1c currently. 5. Neurologic: The patient has severe dementia, controlled with sertraline and Seroquel. Continue home medications. 6. Musculoskeletal: The patient has a right intratrochanteric fracture. Orthopedics has been consulted and, by report, plan for surgery in the morning. The patient is ASA 2. We will give patient pain medicine in case of elevated blood pressures secondary to pain. 7. Prophylaxis: The patient will be on sequential compression devices overnight as chemical deep venous thrombosis prophylaxis is not indicated secondary to likely surgery in the morning. The patient will be n.p.o. as of morning; therefore, we will do famotidine 20 mg p.o. daily for gastrointestinal ulcer prophylaxis. 8. Code status: DO NOT RESUSCITATE and she has a POLST form on file at the facility.
[2016-08-24] VITALS (11 sets, daily range): BP systolic 127–165; BP diastolic 55–79
--- NOTE | 2016-08-24 09:58 | Progress Note ---
Subjective General Note Date: August 24, 2016 Admission Date: August 23, 2016 Hospital Day: 2 PCP: Nahid Escobedo D.O. Status: Inpatient Advanced Directive: NO CODE Room: 207 Brief History: The patient is a 80-year-old white female with a significant past medical history of dementia, rheumatoid arthritis, hypertension, hyperlipidemia, type 2 diabetes mellitus, autoimmune hepatitis who presented to [facility] emergency department on the day of admission secondary to fall with right hip pain. [facility] ER evaluation was consistent with right intertrochanteric hip fracture. The patient was seen by Shawn Walden M.D. (orthopedics) who requested the patient be admitted by the hospitalist service. Secondary to the above, the patient was admitted by Darlin Araya M.D. for further evaluation and treatment For other history present illness, past medical history, family history, social history, review of systems, and admission physical examination please see the patient's history and physical examination and ER visit note in the patient's medical record. Subjective: The patient remains confused at this time. Pleasant. Responds inappropriately. No distress. Patient requests: None Medications and Allergies Medications Current Medications Sig/Natalie Start time Last Medication Dose Route Stop Time Status Admin Diltiazem HCl 240 MG DAILY 08/24 0900 AC 08/24 PO 0846 Diltiazem HCl 120 MG QAM 08/24 09 AC 08/24 PO 0846 Famotidine/Sodium 50 ML DAILY 08/24 0900 AC 08/24 Chloride IV 0839 Sertraline HCl 50 MG DAILY 08/24 0900 AC PO Lactated Ringer's 1,000 ML ASDIRECTED 08/24 0500 AC 08/24 IV 0022 Morphine Sulfate See Dose Q2H PRN 08/23 2129 AC Insts (1) IV Acetaminophen 325 MG Q6H PRN 08/23 2114 AC PO Albuterol Sulfate 2.5 MG RTQ4H PRN 08/23 2114 AC IN Bisacodyl 10 MG DAILY PRN 08/23 2114 AC VA Docusate Sodium 100 MG BID PRN 08/23 2114 AC PO Ondansetron HCl 8 MG Q8H PRN 08/23 2114 AC PO Quetiapine Fumarate 25 MG QHS 08/23 2114 AC PO Senna 1 TAB BID PRN 08/23 2114 AC PO Dose Instructions: (1)Morphine Sulfate: 1 - 2 MG Allergies Coded Allergies: Clarithromycin (Severe, 08/24/16) Erythromycin (Severe, 08/24/16) Latex (Severe, 08/24/16) Penicillins (Severe, 08/24/16) Physical Exam Vital Signs / I&Os Vital Signs Date Time Temp Pulse Resp B/P Pulse O2 O2 Flow FiO2 Ox Delivery Rate 08/24 0702 98.2 72 18 165/73 96 Room Air 08/24 0217 96.6 72 16 156/72 93 Room Air 08/23 2008 98.4 70 16 167/77 95 Room Air I&O 08/24 0000 08/23 1600 08/23 0800 Intake Total Output Total Balance General Appearance No acute distress, confused Lungs Scattered rhonchi Cardiovascular Regular rate and rhythm, Normal S1 and S2 Abdomen Normal bowel sounds, Soft, No tenderness Extremities No cyanosis, No clubbing Neurological Cranial nerves intact, No lateralizing signs Psych/Mental Status Confused LAB Results Laboratory Tests 08/24 08/23 08/23 0940 1705 1620 Chemistry Plasma Sodium (136 - 145 mmol/L) Pending 142 Plasma Potassium (3.5 - 5.1 mmol/L) Pending 3.6 Plasma Chloride (98 - 107 mmol/L) Pending 103 CO2 (Enzymatic) (21 - 32 mmol/L) Pending 31 BUN (7 - 18 mg/dL) Pending 15 Creatinine (0.6 - 1.3 mg/dL) Pending 0.9 Est GFR ( Amer) (mL/min) Pending >60 Est GFR (Non-Af Amer) (mL/min) Pending >60 Glucose (70 - 110 mg/dL) Pending 132 Plasma Calcium (8.5 - 10.1 mg/dL) Pending 8.8 Total Bilirubin (0.0 - 1.0 mg/dL) 0.3 AST (15 - 37 U/L) 38 ALT (12 - 78 U/L) 54 Alkaline Phosphatase (46 - 116 U/L) 112 Total Protein (6.4 - 8.2 g/dL) 7.8 Albumin (3.3 - 5.0 g/dL) 3.5 Vitamin B12 (211 - 946 pg/mL) 1006 TSH 3rd Generation (0.30 - 3.74 uIU/mL) 2.421 Coagulation INR (0.8 - 1.2) 1.0 APTT (24 - 34 SECONDS) 33 Hematology WBC (4.5 - 11.5 K/uL) 6.4 11.1 RBC (4.00 - 5.20 M/uL) 4.17 4.31 Hgb (12.0 - 16.0 gm/dL) 13.8 14.9 Hct (36.0 - 46.0 %) 44.2 45.2 MCV (80 - 100 fL) 106 105 MCH (26 - 34 pg) 33 35 RDW (11.6 - 14.8 %) 14.9 13.7 Gran % (53 - 90) 75.1 Neut % (Auto) (50 - 75 %) 88.5 Lymph % (Auto) (25 - 40 %) 17.2 5.8 [place] % (Auto) (3 - 14 %) 7.7 5.2 Eos % (Auto) (0 - 4 %) 0.4 Baso % (Auto) (0 - 2 %) 0.1 Plt Count, EDTA (150 - 400 K/uL) 188 257 PUBS MCHC (31 - 37 g/dL) 31 33 Urines Urine Color YELLOW Urine Appearance CLEAR Urine pH (5.0 - 8.0) 5.5 Ur Specific [place] (1.010 - 1.030) >= 1.030 Urine Protein (NEGATIVE) NEGATIVE Urine Ketones (NEGATIVE) 1+ Urine Blood (NEGATIVE) NEGATIVE Urine Nitrite (NEGATIVE) NEGATIVE Urine Bilirubin (NEGATIVE) NEGATIVE Urine Urobilinogen (0.2 - 1.0 EU/dL) 0.2 Ur Leukocyte Esterase (NEGATIVE) NEGATIVE Urine RBC (0 - 1 rbc/hpf) NONE SEEN Urine WBC (0 - 1 wbc/hpf) 0-1 Ur Epithelial Cells (0 - 5 EPI/hpf) 0-1 Urine Bacteria (NONE SEEN) NONE SEEN Urine Glucose (NEGATIVE) NEGATIVE Urine Comment CULT NOT INDICATED 08/23 1544 Chemistry Hemoglobin A1c % (4.5 - 6.2 %) 5.9 Assessment and Plan Problem List 1. Dementia Plan -Patient remains confused but pleasant -Patient apparently at baseline mental status -No further evaluation. -Continue outpatient medical regimen 2. Displaced intertrochanteric fracture of right femur, initial encounter for closed fracture Status Acute Onset Date 08/23/16 Plan -Follow per orthopedics, Dr. Walden -Operative intervention today 3. Hypertension Status Chronic Onset Date Unknown Plan -Blood pressure mildly elevated -BP this a.m. 165/73 mmHg -Continue Cardizem CD -Low-salt diet -Monitor 4. Diabetes mellitus Status Chronic Onset Date Unknown Plan -Patient with history of diabetes mellitus -Blood sugar well controlled at this time -Hemoglobin A1c within normal limits at 5.9% -Monitor, insulin sliding scale as needed Current status: Fair, unstable Anticipated discharge date: Anticipated discharge in 3-4 days Anticipated discharge placement: intermediate facility Patient care time: Time spent in chart review, patient interview, physical exam, CPOE, and care documentation: 25 minutes Visit to patient today: 1 Complexity of care: Moderate E&M Codes Rounding: Inpt-Moderate/[id number]
--- NOTE | 2016-08-24 13:13 | Preoperative Progress Note ---
Preop Note Details Current Status: No Changes (Hospitalist cleared surgery) Physical Exam: No Changes Necessity: Still desired/necessary Other: CV Reviewed, Respiratory Reviewed, Review PABLO notes & Vitals, A1C <6
--- NOTE | 2016-08-24 15:24 | DIAGNOSTIC IMAGING REPORT ---
PROCEDURE: XR HIP PINNING W/C-ARM - RIGHT INDICATION: RIGHT HIP PINNING TECHNIQUE: C-arm fluoroscopy provided to Dr. Martinez for hip pinning. Fluoroscopy time 1.5 minutes 24.8 mGy). COMPARISON: None. FINDINGS: Two AP and two lateral C-arm views. There is an intramedullary kip in the femur and a pin in the hip. IMPRESSION: 1. C-arm fluoroscopy for hip pinning (performed by Dr. Martinez
--- NOTE | 2016-08-24 15:31 | Postoperative Progress Note ---
Postop Progress Note Preoperate Diagnosis: R intertrochanteric femur fx Postoperative Diagnosis: same Surgeon: Shawn Walden MD Supervisor [employer] Surgeon: Shawn Walden MD Anesthesia: General ETT Findings: see dictation Procedure: Closed reduction and [id number] 125 degree R Intertan Cephallomedullary fixation of R intertroch fx Complications? No Condition: Stable EBL: 50 mL Fluid(s): 300 mL Drain(s): None Blood Administered: None Specimen(s) removed? No Grafts or Implants? Yes Graft/Implant type: see chart stickers . (See nursing notes for details of grafts/implants)
--- NOTE | 2016-08-24 15:31 | Postoperative Progress Note ---
Postop Progress Note Preoperate Diagnosis: R intertrochanteric femur fx Postoperative Diagnosis: same Surgeon: Shawn Wladen MD Director Sports Surgeon: Shawn Walden MD Anesthesia: General ETT Findings: see dictation Procedure: Closed reduction and [id number] 125 degree R Intertan Cephallomedullary fixation of R intertroch fx Complications? No Condition: Stable EBL: 50 mL Fluid(s): 300 mL Drain(s): None Blood Administered: None Specimen(s) removed? No Grafts or Implants? Yes Graft/Implant type: see chart stickers . (See nursing notes for details of grafts/implants)
--- NOTE | 2016-08-24 20:23 | OPERATIVE REPORT ---
DATE OF SURGERY: 08/24/2016 SURGEON: Shawn Walden MD JEWEL BEARING GRINDER: None. PREOPERATIVE DIAGNOSIS: 1. Right intertrochanteric 3-part proximal femur fracture POSTOPERATIVE DIAGNOSIS: 1. Right intertrochanteric 3-part proximal femur fracture PROCEDURE PERFORMED: 1. Closed reduction and cephalomedullary fixation with Corral and Nephew Intertan nail, 10 mm diameter x 340 mm long, 125-degree neck angle and 85 mm proximal screws with a single distal interlock ANESTHESIA: General endotracheal. ESTIMATED BLOOD LOSS: 50 mL. FLUIDS: Blood replacement 300 mL intravenous crystalloid fluids. URINE OUTPUT: 150 mL per [place]ga of which 50 mL was during the procedure. INDICATIONS: Severely demented 80-year-old woman sustained a witnessed ground- level fall with inability to bear weight and was brought to the emergency department where x-rays showed a 3-part minimally displaced intertrochanteric right proximal femur fracture. She was admitted to the hospitalist service and medically cleared for surgery to minimize the risk of bed rest. She had previously been an independent ambulator who enjoyed dancing, but was completely disoriented to time and date and possibly even person. SURGICAL FINDINGS: The fracture was able to be easily reduced with traction and internal rotation. We obtained stable fixation with the above-listed construct, which was seen to not violate the hip joint on [id number] imaging. Preoperative plan: The patient will be returned to the care of the Hospitalist Service. She will be weightbearing as tolerated with physical therapy. Walker and fall precautions. Deep venous thrombosis prophylaxis will be with pneumatic compression devices and enteric-coated aspirin 325 mg twice daily for 6 weeks. She will return to clinic in 2 weeks' time for wound check, if necessary, but if she is in the nursing facility and the wound is benign then she may return at 6 weeks for x-rays. She can call or return for any signs of thromboembolic disease, infection or other questions or concerns. SURGICAL TECHNIQUE: The patient was identified in the preoperative holding area with her family. There were no interval changes in her medical condition. All other questions were further invited and answered to their satisfaction. Her site was already marked, consent was already signed by her daughter with power of assistant prosecuting attorney yesterday. She was seen and interviewed by Anesthesia nursing and brought back to the operating room where general endotracheal anesthesia was administered on the fracture table, along with 2 g of intravenous cefazolin. The well leg was placed in the well leg herrera and appropriately padded. The operative leg was placed in the traction boot and traction and internal rotation were applied. Fluoroscopy was brought in and C-arm was used to confirm the ability to obtain adequate images and the acceptability of the reduction. Everyone in the room agreed that we should proceed after surgical pause confirmed the patient's identity, operative site, availability of implants and instrumentation appropriate, thromboembolic prophylaxis with pneumatic compression device on the nonoperative leg and appropriate antibiotic delivery within an hour of incision. The leg was then preprepped with a sharee wipe and prepped with ChloraPrep in a circumferential sterile fashion from the iliac crest to the traction boot. We draped free with an Ioban impregnated shower curtain technique. Fluoroscopy was brought in and the trajectory of the femoral neck and the starting point of the nail was identified. A small incision was made in line with the axis of the femoral shaft proximal to the greater trochanter through skin and dermis, spreading technique was done on the tip of the trochanter. Guide pin was inserted into the tip of the greater trochanter and down to the proximal femur. Its position was confirmed under multiplanar fluoroscopy and then the opening reamer was employed including the channel reamer down to the subtrochanteric region. Ball tip guidewire was placed after the canal was suctioned and the tip of the guidewire was confirmed to be in appropriate position, centered in the distal femur proximal to the knee joint. The length of the nail was determined to be shorter than 350 mm, guidewire contained in the canal and so a 340 mm nail was selected and 10 mm diameter was placed with selected based on preoperative imaging. It was impacted into position at the appropriate depth. The incision for the proximal interlock screws was made and Guide pin driven into the appropriate position, confirmed under multiplanar fluoroscopy. We then drilled for the compression screw, placed the derotation kip, measured the depth through the proximal lag screw, rounded down to 90 mm from approximately 97 mm that was contained in bone and placed the 90 mm compression screw to within 5 mm of the subchondral bone on multiplanar fluoroscopic imaging including [id number] views to confirm that the screw was not violating the subchondral bone or joint. The compression screw was then placed and this was used to compress the fracture. The set screw was then engaged and then backed up a quarter turn. Again, around-the- world views were obtained to confirm the position of the proximal hardware being acceptable and the reduction being acceptable and then we came to a direct lateral visualization of the distal interlock screws after removing the insertion handle and abducting the leg. We used perfect alutiiq technique and placed a single distal interlock screw through the nonslotted hole distally and confirmed it to be through the kip in both cortices of the bone on multiplanar imaging. Final fluoroscopic images were taken to be saved and archived. Wounds were copiously irrigated, infiltrated with 0.25% Marcaine with epinephrine and closed in layers using inverted undyed 2-0 Vicryl for the subdermal stitch and 3-0 V-Loc for the subcuticular stitch followed by Steri-Strips and Dermabond. Xeroform, 4 x 4's and Ioban were used for the dressing. The patient was reversed from anesthesia, undraped, brought off of the fracture table and brought to the recovery room in stable and satisfactory condition, having tolerated the procedure well without apparent complication. All sponge, needle and instrument counts were reported correct prior to leaving the operating room.
[2016-08-25] VITALS (7 sets, daily range): BP systolic 110–130; BP diastolic 43–79
--- NOTE | 2016-08-25 07:18 | Progress Note ---
Subjective General Replies "Um Um" to all questions. Apears comfortable. Unable to determine if she has chest or other pain. Does not appear SOB. Wont follow commands. Physical Exam Vital Signs / I&Os Vital Signs Date Time Temp Pulse Resp B/P Pulse O2 O2 Flow FiO2 Ox Delivery Rate 08/25 0700 35.8 52 22 128/71 100 Nasal 0.0 Cannula / 0308 36.7 52 18 130/77 100 Nasal 4.0 Cannula / 0217 58 24 127/79 98 4.0 01/03 2327 56 22 127/79 98 4.0 01/03 2250 36.6 70 18 127/79 97 Nasal 4.0 Cannula /03 2122 76 20 98 4.0 01/03 1900 36.0 67 16 135/61 98 Nasal 4.0 Cannula 01/03 1829 84 13 97 4.0 01/03 1807 64 16 151/55 99 Mask 6.0 01/03 1730 91 16 150/73 100 Mask 6.0 01/03 1715 36.2 64 18 155/60 100 Mask 6.0 01/03 1703 36.2 68 18 157/65 95 Mask 6.0 01/03 1700 Nasal 3.5 Cannula 01/03 1645 36.5 78 15 158/61 99 Mask 6.0 01/03 1640 81 16 158/74 98 Mask 6.0 01/03 1635 78 13 158/61 98 Mask 6.0 01/03 1630 67 16 158/74 95 Mask 9.0 01/03 1625 67 22 158/74 96 Mask 9.0 01/03 1620 69 28 155/62 98 Mask 9.0 01/03 1615 71 15 175/66 100 Mask 6.0 01/03 1610 79 18 166/61 97 Mask 6.0 01/03 1605 74 17 176/60 92 Mask 9.0 01/03 1600 79 17 166/55 95 VentI-Mask 10.0 01/03 1555 74 15 157/77 96 Mask 9.0 01/03 1550 73 19 157/77 100 Mask 9.0 01/03 1545 83 18 149/73 100 Mask 9.0 01/03 1540 76 17 166/66 93 Mask 9.0 01/03 1535 67 16 124/55 100 Mask 9.0 01/03 1530 76 16 137/60 89 Mask 9.0 08/24 1527 36.2 73 15 133/58 91 Mask 6.0 08/24 1130 37.1 72 20 158/59 93 Room Air I&O 08/25 0000 08/24 1600 08/24 0800 Intake Total 0 997 561 Output Total 150 475 550 Balance -150 522 11 General Appearance Alert, No acute distress Extremities No cyanosis, Dressing CDI Skin No Breakdown Neurological unable to determine motor function. sensation grossly intact. Psych/Mental Status Confused, at demented baseline LAB Results Laboratory Tests 08/25 08/24 0555 0940 Chemistry Plasma Sodium (136 - 145 mmol/L) 141 139 Plasma Potassium (3.5 - 5.1 mmol/L) 4.0 3.1 Plasma Chloride (98 - 107 mmol/L) 105 103 CO2 (Enzymatic) (21 - 32 mmol/L) 27 27 BUN (7 - 18 mg/dL) 8 8 Creatinine (0.6 - 1.3 mg/dL) 0.6 0.6 Est GFR ( Amer) (mL/min) >60 >60 Est GFR (Non-Af Amer) (mL/min) >60 >60 Glucose (70 - 110 mg/dL) 135 99 Plasma Calcium (8.5 - 10.1 mg/dL) 8.2 8.1 Hematology WBC (4.5 - 11.5 K/uL) 6.4 RBC (4.00 - 5.20 M/uL) 4.17 Hgb (12.0 - 16.0 gm/dL) 13.4 13.8 Hct (36.0 - 46.0 %) 40.9 44.2 MCV (80 - 100 fL) 106 MCH (26 - 34 pg) 33 RDW (11.6 - 14.8 %) 14.9 Gran % (53 - 90) 75.1 Lymph % (Auto) (25 - 40 %) 17.2 [place] % (Auto) (3 - 14 %) 7.7 Plt Count, EDTA (150 - 400 K/uL) 188 PUBS MCHC (31 - 37 g/dL) 31 Imaging C-arm images reviewed show acceptable postion of fx and HW. Assessment and Plan Problem List 1. Dementia 2. Displaced intertrochanteric fracture of right femur, initial encounter for closed fracture Plan PT, SCDs, ECASA 2325 mg 2x/day x 6 weeks. WBAT. Change dressing before DC to SNF.
--- NOTE | 2016-08-25 08:02 | Progress Note ---
Subjective General Note Date: August 25, 2016 Admission Date: August 23, 2016 Hospital Day: 3 PCP: Nahid Escobedo D.O. Status: Inpatient Advanced Directive: NO CODE Room: 207 Brief History: The patient is a 80-year-old white female with a significant past medical history of dementia, rheumatoid arthritis, hypertension, hyperlipidemia, type 2 diabetes mellitus, autoimmune hepatitis who presented to [facility] emergency department on the day of admission secondary to fall with right hip pain. [facility] ER evaluation was consistent with right intertrochanteric hip fracture. The patient was seen by Shawn Walden M.D. (orthopedics) who requested the patient be admitted by the hospitalist service. Secondary to the above, the patient was admitted by Darlin Araya M.D. for further evaluation and treatment For other history present illness, past medical history, family history, social history, review of systems, and admission physical examination please see the patient's history and physical examination and ER visit note in the patient's medical record. Subjective: The patient remains confused but pleasant. No meaningful verbal interaction. Patient requests: None Medications and Allergies Medications Current Medications Sig/Natalie Start time Last Medication Dose Route Stop Time Status Admin Magnesium Citrate 300 ML 1300 08/28 1300 AC PO 08/28 1800 Bisacodyl 10 MG 0908/28 0900 AC MN 08/28 1200 Polyethylene Glycol 17 GM 0900 08/27 0900 AC PO 08/27 1200 Magnesium Hydroxide 10 ML 0900 08/26 0900 AC PO 08/26 1200 Acetaminophen 650 MG Q4H PRN 08/25 1600 AC PO Acetaminophen/ See Dose Q4H PRN 08/25 1600 AC Hydrocodone Bitart Insts (1) PO Ascorbic Acid 500 MG BIDWC 08/25 0900 AC PO Cholecalciferol 1,000 UNIT DAILY 08/25 0900 AC PO Docusate Sodium 100 MG BID 08/25 0900 AC PO 08/25 2200 Acetaminophen 100 ML Q6H 08/24 2200 AC 08/25 IV 08/25 1015 0314 Cefazolin Sodium/ 50 ML Q8HR 08/24 2200 AC 08/25 Dextrose IV 08/25 1420 0510 Aspirin 325 MG BID 08/24 2100 AC PO Ferrous Sulfate 325 MG BIDWC 08/24 1800 AC PO Morphine Sulfate 4 MG Q1H PRN 08/24 1545 AC IV Naloxone HCl 0.4 MG PRN PRN 08/24 1545 AC IV Promethazine HCl 12.5 MG Q4H PRN 08/24 1545 AC IV Diltiazem HCl 240 MG DAILY 08/24 09 AC 08/24 PO 0846 Diltiazem HCl 120 MG QAM 08/24 09 AC 08/24 PO 0846 Sertraline HCl 50 MG DAILY 08/24 899 AC PO Albuterol Sulfate 2.5 MG RTQ4H PRN 08/23 2114 AC IN Ondansetron HCl 8 MG Q8H PRN 08/23 2114 AC PO Quetiapine Fumarate 25 MG QHS 08/23 2114 AC PO Senna 1 TAB BID PRN 08/23 2114 AC PO Dose Instructions: (1)Acetaminophen/Hydrocodone Bitart: 1 - 2 TABLETS Allergies Coded Allergies: Clarithromycin (Severe, 08/24/16) Erythromycin (Severe, 08/24/16) Latex (Severe, 08/24/16) Penicillins (Severe, 08/24/16) Physical Exam Vital Signs / I&Os Vital Signs Date Time Temp Pulse Resp B/P Pulse O2 O2 Flow FiO2 Ox Delivery Rate 08/25 0700 96.4 52 22 128/71 100 Nasal 0.0 Cannula 08/25 0308 98.1 52 18 130/77 100 Nasal 4.0 Cannula 08/25 0217 58 24 127/79 98 4.0 08/24 2327 56 22 127/79 98 4.0 08/24 2250 97.9 70 18 127/79 97 Nasal 4.0 Cannula 08/24 2122 76 20 98 4.0 08/24 1900 96.8 67 16 135/61 98 Nasal 4.0 Cannula 08/24 1829 84 13 97 4.0 08/24 1807 64 16 151/55 99 Mask 6.0 / 1730 91 16 150/73 100 Mask 6.0 08/24 1715 97.2 64 18 155/60 100 Mask 6.0 08/24 1703 97.2 68 18 157/65 95 Mask 6.0 / 1700 Nasal 3.5 Cannula 08/24 1645 97.7 78 15 158/61 99 Mask 6.0 / 1640 81 16 158/74 98 Mask 6.0 08/24 1635 78 13 158/61 98 Mask 6.0 / 1630 67 16 158/74 95 Mask 9.0 01/03 1625 67 22 158/74 96 Mask 9.0 / 1620 69 28 155/62 98 Mask 9.0 / 1615 71 15 175/66 100 Mask 6.0 / 1610 79 18 166/61 97 Mask 6.0 /03 1605 74 17 176/60 92 Mask 9.0 / 1600 79 17 166/55 95 VentI-Mask 10.0 / 1555 74 15 157/77 96 Mask 9.0 01/03 1550 73 19 157/77 100 Mask 9.0 01/03 1545 83 18 149/73 100 Mask 9.0 01/03 1540 76 17 166/66 93 Mask 9.0 01/03 1535 67 16 124/55 100 Mask 9.0 / 1530 76 16 137/60 89 Mask 9.0 / 1527 97.2 73 15 133/58 91 Mask 6.0 / 1130 98.8 72 20 158/59 93 Room Air I&O 08/25 0000 08/24 1600 08/24 0800 Intake Total 0 997 561 Output Total 150 475 550 Balance -150 522 11 General Appearance Alert, Cooperative, No acute distress Lungs Clear to auscultation Cardiovascular Regular rate and rhythm, Normal S1 and S2 Abdomen Normal bowel sounds, Soft, No tenderness, No guarding Extremities No cyanosis, No clubbing, wound not examined Neurological Cranial nerves intact, No lateralizing signs Psych/Mental Status Confused LAB Results Laboratory Tests 08/25 08/24 0555 0940 Chemistry Plasma Sodium (136 - 145 mmol/L) 141 139 Plasma Potassium (3.5 - 5.1 mmol/L) 4.0 3.1 Plasma Chloride (98 - 107 mmol/L) 105 103 CO2 (Enzymatic) (21 - 32 mmol/L) 27 27 BUN (7 - 18 mg/dL) 8 8 Creatinine (0.6 - 1.3 mg/dL) 0.6 0.6 Est GFR ( Amer) (mL/min) >60 >60 Est GFR (Non-Af Amer) (mL/min) >60 >60 Glucose (70 - 110 mg/dL) 135 99 Plasma Calcium (8.5 - 10.1 mg/dL) 8.2 8.1 Hematology WBC (4.5 - 11.5 K/uL) 6.4 RBC (4.00 - 5.20 M/uL) 4.17 Hgb (12.0 - 16.0 gm/dL) 13.4 13.8 Hct (36.0 - 46.0 %) 40.9 44.2 MCV (80 - 100 fL) 106 MCH (26 - 34 pg) 33 RDW (11.6 - 14.8 %) 14.9 Gran % (53 - 90) 75.1 Lymph % (Auto) (25 - 40 %) 17.2 [place] % (Auto) (3 - 14 %) 7.7 Plt Count, EDTA (150 - 400 K/uL) 188 PUBS MCHC (31 - 37 g/dL) 31 Assessment and Plan Problem List 1. Displaced intertrochanteric fracture of right femur, initial encounter for closed fracture Plan -Follow per orthopedics -Uneventful postoperative course 2. Dementia Plan -Stable -Monitor -Outpatient follow-up with PCP 3. Hypertension Status Chronic Onset Date Unknown Plan -Blood pressure well controlled -Continue present therapy -Low-salt diet -BP this a.m. 128/71 mmHg 4. Diabetes mellitus Status Chronic Onset Date Unknown Plan -Blood glucose mildly elevated -Fasting blood sugar this a.m. 121 mg/dL -Insulin sliding scale when necessary Current status: Fair, improved Anticipated discharge date: Anticipated discharge in 2 days per orthopedics Anticipated discharge placement: assisted facility Patient care time: Time spent in chart review, patient interview, physical exam, CPOE, and care documentation: 25 minutes Visit to patient today: 1 Complexity of care: Moderate E&M Codes Rounding: Inpt-Moderate/07262
[2016-08-26] VITALS (7 sets, daily range): BP systolic 110–138; BP diastolic 54–83
--- NOTE | 2016-08-26 07:05 | Progress Note ---
Subjective General No c/o answers yep to every question even when diametrically opposed wording. Physical Exam Vital Signs / I&Os Vital Signs Date Time Temp Pulse Resp B/P Pulse O2 O2 Flow FiO2 Ox Delivery Rate 08/26 0303 36.8 52 16 112/70 95 Room Air 08/25 2238 36.7 54 16 118/79 94 Room Air 08/25 2210 Room Air 08/25 1813 36.6 50 18 114/44 95 Room Air 08/25 1416 36.2 53 18 110/43 93 Room Air 0.0 08/25 1057 100 08/25 1028 35.8 63 16 125/43 95 Room Air 0.0 I&O 08/26 0000 08/25 1600 08/25 0800 Intake Total 812 865 Output Total 100 300 250 Balance -100 512 615 General Appearance Alert, Disoriented at baseline. Does not follow commands. Appears comfortable and not SOB. Extremities Dressings CDI. Skin pink and warm. Not pain response to calf squeeze. Skin No Breakdown Neurological Sensation intact, No lateralizing signs Psych/Mental Status Confused LAB Results Laboratory Tests 08/26 0550 Chemistry Folate (>3.0 ng/mL) 5.9 Hematology WBC (4.5 - 11.5 K/uL) 7.6 RBC (4.00 - 5.20 M/uL) 3.40 Hgb (12.0 - 16.0 gm/dL) 11.6 Hct (36.0 - 46.0 %) 35.9 MCV (80 - 100 fL) 106 MCH (26 - 34 pg) 34 RDW (11.6 - 14.8 %) 13.4 Neut % (Auto) (50 - 75 %) Pending Lymph % (Auto) (25 - 40 %) Pending [place] % (Auto) (3 - 14 %) Pending Band Neutrophils % (0 - 8 %) Pending Plt Count, EDTA (150 - 400 K/uL) 214 PUBS MCHC (31 - 37 g/dL) 32 Assessment and Plan Problem List 1. Dementia 2. Displaced intertrochanteric fracture of right femur, initial encounter for closed fracture Plan Continue current care. Change dressing before DC to SNF.
--- NOTE | 2016-08-26 14:38 | Progress Note ---
Subjective General Note Date: August 26, 2016 Admission Date: August 23, 2016 Hospital Day: 4 PCP: Nahid Escobedo D.O. Status: Inpatient Advanced Directive: NO CODE Room: 207 Brief History: The patient is a 80-year-old white female with a significant past medical history of dementia, rheumatoid arthritis, hypertension, hyperlipidemia, type 2 diabetes mellitus, autoimmune hepatitis who presented to [facility] emergency department on the day of admission secondary to fall with right hip pain. [facility] ER evaluation was consistent with right intertrochanteric hip fracture. The patient was seen by Shawn Walden M.D. (orthopedics) who requested the patient be admitted by the hospitalist service. Secondary to the above, the patient was admitted by Darlin Araya M.D. for further evaluation and treatment For other history present illness, past medical history, family history, social history, review of systems, and admission physical examination please see the patient's history and physical examination and ER visit note in the patient's medical record. Subjective: The patient remains confused but pleasant. No meaningful verbal interaction. Patient at baseline status Patient requests: None Medications and Allergies Medications Current Medications Sig/Natalie Start time Last Medication Dose Route Stop Time Status Admin Magnesium Citrate 300 ML 1300 08/28 1300 AC PO 08/28 1800 Bisacodyl 10 MG 0900 08/28 0900 AC DC 08/28 1200 Polyethylene Glycol 17 GM 0900 08/27 0900 AC PO 08/27 1200 Diltiazem HCl 60 MG QID 08/26 0600 AC 08/26 PO 1132 Acetaminophen 650 MG Q4H PRN 08/25 1600 AC 08/26 PO 1132 Acetaminophen/ See Dose Q4H PRN 08/25 1600 AC 08/25 Hydrocodone Bitart Insts (1) PO 1737 Ascorbic Acid 500 MG BIDWC 08/25 0900 AC 08/26 PO 0839 Cholecalciferol 1,000 UNIT DAILY 08/25 0900 AC 08/26 PO 0840 Insulin Human Lispro See Dose ACHS 08/25 0830 AC 08/25 Insts (2) SC 2044 Aspirin 325 MG BID 08/24 2100 AC 08/26 PO 0839 Ferrous Sulfate 325 MG BIDWC 08/24 1800 AC 08/26 PO 0841 Morphine Sulfate 4 MG Q1H PRN 08/24 1545 AC IV Naloxone HCl 0.4 MG PRN PRN 08/24 1545 AC IV Promethazine HCl 12.5 MG Q4H PRN 08/24 1545 AC IV Sertraline HCl 50 MG DAILY 08/24 0900 AC 08/26 PO 0841 Albuterol Sulfate 2.5 MG RTQ4H PRN 08/23 2114 AC IN Ondansetron HCl 8 MG Q8H PRN 08/23 2114 AC PO Quetiapine Fumarate 25 MG QHS 08/23 2114 AC 08/25 PO 2043 Senna 1 TAB BID PRN 08/23 2114 AC PO Dose Instructions: (1)Acetaminophen/Hydrocodone Bitart: 1 - 2 TABLETS (2)Insulin Human Lispro: LOW DOSE SLIDING SCALE Allergies Coded Allergies: Clarithromycin (Severe, 08/24/16) Erythromycin (Severe, 08/24/16) Latex (Severe, 08/24/16) Penicillins (Severe, 08/24/16) Physical Exam Vital Signs / I&Os Vital Signs Date Time Temp Pulse Resp B/P Pulse O2 O2 Flow FiO2 Ox Delivery Rate 08/26 1145 98.4 65 16 110/56 95 Room Air 0.0 08/26 0855 Room Air 08/26 0700 98.2 58 16 134/54 92 Room Air 0.0 08/26 0303 98.2 52 16 112/70 95 Room Air 08/25 2238 98.1 54 16 118/79 94 Room Air 08/25 2210 Room Air 08/25 1813 97.9 50 18 114/44 95 Room Air I&O 08/26 0000 08/25 1600 08/25 0800 Intake Total 812 865 Output Total 100 300 250 Balance -100 512 615 General Appearance Alert, Cooperative, No acute distress Lungs Clear to auscultation Cardiovascular Regular rate and rhythm, Normal S1 and S2 Abdomen Normal bowel sounds, Soft Extremities No cyanosis, No clubbing Psych/Mental Status Mood normal, Confused LAB Results Laboratory Tests 08/26 0550 Chemistry Folate (>3.0 ng/mL) 5.9 Hematology WBC (4.5 - 11.5 K/uL) 7.6 RBC (4.00 - 5.20 M/uL) 3.40 Hgb (12.0 - 16.0 gm/dL) 11.6 Hct (36.0 - 46.0 %) 35.9 MCV (80 - 100 fL) 106 MCH (26 - 34 pg) 34 RDW (11.6 - 14.8 %) 13.4 Neut % (Auto) (50 - 75 %) 62 Lymph % (Auto) (25 - 40 %) 32 [place]oux % (Auto) (3 - 14 %) 6 Eos % (Auto) (0 - 4 %) 0 Baso % (Auto) (0 - 2 %) 0 Band Neutrophils % (0 - 8 %) 0 Metamyelocytes % (0 - 1 %) 0 Myelocytes (0 - 1 %) 0 Other Cell Type 0 Plt Count, EDTA (150 - 400 K/uL) 214 Hypochromic-Microcytic 1+ Anisocytosis (manual) 1+ PUBS MCHC (31 - 37 g/dL) 32 Assessment and Plan Problem List 1. Displaced intertrochanteric fracture of right femur, initial encounter for closed fracture Status Acute Onset Date 08/23/16 Plan -Stable -Follow per orthopedics -Probable discharge in a.m. per orthopedics 2. Hypertension Status Chronic Onset Date Unknown Plan -Blood pressure well controlled -Continue diltiazem -Blood pressure this a.m. 134/54 mmHg -Low-salt diet 3. Diabetes mellitus Status Chronic Onset Date Unknown Plan -Blood glucose improved -Fasting blood sugar today 91 -Continue insulin sliding scale -Monitor 4. Dementia Plan -Stable -Patient at baseline status. -Monitor 5. Macrocytic anemia Status Acute Onset Date Unknown Plan -Patient with mild macrocytic anemia -B12 and folate within normal limits -Monitor Current status: Fair, improved Anticipated discharge date: Anticipated discharge in a.m. to nursing home facility Anticipated discharge placement: care home facility Patient care time: Time spent in chart review, patient interview, physical exam, CPOE, and care documentation: 25 minutes Visit to patient today: 1 Complexity of care: Moderate E&M Codes Rounding: Inpt-Moderate/[id number]
[2016-08-27 02:18] VITALS: BP 144/56
[2016-08-27 07:04] VITALS: BP 155/78
--- NOTE | 2016-08-27 08:14 | Progress Note ---
Subjective General Took more steps yesterday. Still demented. Sitting up in recliner this AM. Appears comfortable and not SOB. Physical Exam Vital Signs / I&Os Vital Signs Date Time Temp Pulse Resp B/P Pulse O2 O2 Flow FiO2 Ox Delivery Rate 08/27 0704 36.9 85 16 155/78 96 Room Air 0.0 08/27 0218 36.8 86 16 144/56 91 Room Air 08/26 2256 37.3 75 20 136/83 93 Room Air 08/26 1941 36.7 68 18 137/61 97 Room Air 08/26 1920 0.0 08/26 1920 Room Air 08/26 1845 36.6 71 18 138/56 96 Room Air 08/26 1450 36.9 68 18 121/63 93 Room Air 08/26 1145 36.9 65 16 110/56 95 Room Air 0.0 08/26 0855 Room Air I&O 08/27 0000 08/26 1600 08/26 0800 Intake Total 100 1160 100 Output Total 123 285 250 Balance -23 875 -150 General Appearance Alert, doesn't follow commands or answer questions reliably. Extremities No edema Skin No Breakdown, No Significant Lesions Neurological Sensation intact Psych/Mental Status Confused (at baseline), at baseline LAB Results Last Hct OK Assessment and Plan Problem List 1. Dementia 2. Displaced intertrochanteric fracture of right femur, initial encounter for closed fracture Status Acute Onset Date 08/23/16 Plan Continue current care. Awaiting SNF placement. Will change dressing check incisions tomorrow.
--- NOTE | 2016-08-27 08:21 | Progress Note ---
Subjective General Note Date: August 27, 2016 Admission Date: August 23, 2016 Hospital Day: 5 PCP: Nahid Escobedo D.O. Status: Inpatient Advanced Directive: NO CODE Room: 207 Brief History: The patient is a 80-year-old white female with a significant past medical history of dementia, rheumatoid arthritis, hypertension, hyperlipidemia, type 2 diabetes mellitus, autoimmune hepatitis who presented to [facility] emergency department on the day of admission secondary to fall with right hip pain. [facility] ER evaluation was consistent with right intertrochanteric hip fracture. The patient was seen by Shawn Walden M.D. (orthopedics) who requested the patient be admitted by the hospitalist service. Secondary to the above, the patient was admitted by Darlin Araya M.D. for further evaluation and treatment For other history present illness, past medical history, family history, social history, review of systems, and admission physical examination please see the patient's history and physical examination and ER visit note in the patient's medical record. Subjective: [] Patient requests: [] Medications and Allergies Medications Current Medications Sig/Natalie Start time Last Medication Dose Route Stop Time Status Admin Magnesium Citrate 300 ML 1300 08/28 1300 AC PO 08/28 1800 Bisacodyl 10 MG 0900 08/28 0900 AC TN 08/28 1200 Polyethylene Glycol 17 GM 0900 08/27 0900 AC PO 08/27 1200 Diltiazem HCl 60 MG QID 08/26 0600 AC 08/27 PO 0548 Acetaminophen 650 MG Q4H PRN 08/25 1600 AC 08/26 PO 1132 Acetaminophen/ See Dose Q4H PRN 08/25 1600 AC 08/25 Hydrocodone Bitart Insts (1) PO 1737 Ascorbic Acid 500 MG BIDWC 08/25 0900 AC 08/26 PO 1730 Cholecalciferol 1,000 UNIT DAILY 08/25 0900 AC 08/26 PO 0840 Insulin Human Lispro See Dose ACHS 08/25 0830 AC 08/25 Insts (2) SC 2044 Aspirin 325 MG BID 08/24 2100 AC 08/26 PO 2130 Ferrous Sulfate 325 MG BIDWC 08/24 1800 AC 08/26 PO 1730 Morphine Sulfate 4 MG Q1H PRN 08/24 1545 AC IV Naloxone HCl 0.4 MG PRN PRN 08/24 1545 AC IV Promethazine HCl 12.5 MG Q4H PRN 08/24 1545 AC IV Sertraline HCl 50 MG DAILY 08/24 0900 AC 08/26 PO 0841 Albuterol Sulfate 2.5 MG RTQ4H PRN 08/23 2114 AC IN Ondansetron HCl 8 MG Q8H PRN 08/23 2114 AC PO Quetiapine Fumarate 25 MG QHS 08/23 2114 AC 08/26 PO 2128 Senna 1 TAB BID PRN 08/23 2114 AC PO Dose Instructions: (1)Acetaminophen/Hydrocodone Bitart: 1 - 2 TABLETS (2)Insulin Human Lispro: LOW DOSE SLIDING SCALE Allergies Coded Allergies: Clarithromycin (Severe, 08/24/16) Erythromycin (Severe, 08/24/16) Latex (Severe, 08/24/16) Penicillins (Severe, 08/24/16) Physical Exam Vital Signs / I&Os Vital Signs Date Time Temp Pulse Resp B/P Pulse O2 O2 Flow FiO2 Ox Delivery Rate 08/27 0704 98.4 85 16 155/78 96 Room Air 0.0 08/27 0218 98.2 86 16 144/56 91 Room Air 08/26 2256 99.1 75 20 136/83 93 Room Air 08/26 1941 98.1 68 18 137/61 97 Room Air 08/26 1920 0.0 08/26 1920 Room Air 08/26 1845 97.9 71 18 138/56 96 Room Air 08/26 1450 98.4 68 18 121/63 93 Room Air 08/26 1145 98.4 65 16 110/56 95 Room Air 0.0 08/26 0855 Room Air I&O 08/27 0000 08/26 1600 08/26 0800 Intake Total 100 1160 100 Output Total 123 285 250 Balance -23 875 -150 Assessment and Plan Problem List 1. Displaced intertrochanteric fracture of right femur, initial encounter for closed fracture Status Acute Onset Date 08/23/16 2. Hypertension Status Chronic Onset Date Unknown 3. Diabetes mellitus Status Chronic Onset Date Unknown 4. Dementia 5. Macrocytic anemia Status Acute Onset Date Unknown Plan -Patient with history of macrocytic anemia -B12 and folate levels within normal limits -Outpatient follow-up Current status: Fair, improved Anticipated discharge date: Today Anticipated discharge placement: nursing home facility Patient care time: Time spent in chart review, patient interview, physical exam, CPOE, and care documentation: [ ] minutes Visit to patient today: [ ] Complexity of care: Moderate E&M Codes Rounding: Inpt-Moderate/[id number]
--- NOTE | 2016-08-27 08:21 | Progress Note ---
Subjective General Note Date: August 27, 2016 Admission Date: August 23, 2016 Hospital Day: 5 PCP: Nahid Escobedo D.O. Status: Inpatient Advanced Directive: NO CODE Room: 207 Brief History: The patient is a 80-year-old white female with a significant past medical history of dementia, rheumatoid arthritis, hypertension, hyperlipidemia, type 2 diabetes mellitus, autoimmune hepatitis who presented to [facility] emergency department on the day of admission secondary to fall with right hip pain. [facility] ER evaluation was consistent with right intertrochanteric hip fracture. The patient was seen by Shawn Walden M.D. (orthopedics) who requested the patient be admitted by the hospitalist service. Secondary to the above, the patient was admitted by Darlin Araya M.D. for further evaluation and treatment For other history present illness, past medical history, family history, social history, review of systems, and admission physical examination please see the patient's history and physical examination and ER visit note in the patient's medical record. Subjective: [] Patient requests: [] Medications and Allergies Medications Current Medications Sig/Natalie Start time Last Medication Dose Route Stop Time Status Admin Magnesium Citrate 300 ML 1300 08/28 1300 AC PO 08/28 1800 Bisacodyl 10 MG 0900 08/28 0900 AC DC 08/28 1200 Polyethylene Glycol 17 GM 0900 08/27 0900 AC PO 08/27 1200 Diltiazem HCl 60 MG QID 08/26 0600 AC 08/27 PO 0548 Acetaminophen 650 MG Q4H PRN 08/25 1600 AC 08/26 PO 1132 Acetaminophen/ See Dose Q4H PRN 08/25 1600 AC 08/25 Hydrocodone Bitart Insts (1) PO 1737 Ascorbic Acid 500 MG BIDWC 08/25 0900 AC 08/26 PO 1730 Cholecalciferol 1,000 UNIT DAILY 08/25 0900 AC 08/26 PO 0840 Insulin Human Lispro See Dose ACHS 08/25 0830 AC 08/25 Insts (2) SC 2044 Aspirin 325 MG BID 08/24 2100 AC 08/26 PO 2130 Ferrous Sulfate 325 MG BIDWC 08/24 1800 AC 08/26 PO 1730 Morphine Sulfate 4 MG Q1H PRN 08/24 1545 AC IV Naloxone HCl 0.4 MG PRN PRN 08/24 1545 AC IV Promethazine HCl 12.5 MG Q4H PRN 08/24 1545 AC IV Sertraline HCl 50 MG DAILY 08/24 0900 AC 08/26 PO 0841 Albuterol Sulfate 2.5 MG RTQ4H PRN 08/23 2114 AC IN Ondansetron HCl 8 MG Q8H PRN 08/23 2114 AC PO Quetiapine Fumarate 25 MG QHS 08/23 2114 AC 08/26 PO 2128 Senna 1 TAB BID PRN 08/23 2114 AC PO Dose Instructions: (1)Acetaminophen/Hydrocodone Bitart: 1 - 2 TABLETS (2)Insulin Human Lispro: LOW DOSE SLIDING SCALE Allergies Coded Allergies: Clarithromycin (Severe, 08/24/16) Erythromycin (Severe, 08/24/16) Latex (Severe, 08/24/16) Penicillins (Severe, 08/24/16) Physical Exam Vital Signs / I&Os Vital Signs Date Time Temp Pulse Resp B/P Pulse O2 O2 Flow FiO2 Ox Delivery Rate 08/27 0704 98.4 85 16 155/78 96 Room Air 0.0 08/27 0218 98.2 86 16 144/56 91 Room Air 08/26 2256 99.1 75 20 136/83 93 Room Air 08/26 1941 98.1 68 18 137/61 97 Room Air 08/26 1920 0.0 08/26 1920 Room Air 08/26 1845 97.9 71 18 138/56 96 Room Air 08/26 1450 98.4 68 18 121/63 93 Room Air 08/26 1145 98.4 65 16 110/56 95 Room Air 0.0 08/26 0855 Room Air I&O 08/27 0000 08/26 1600 08/26 0800 Intake Total 100 1160 100 Output Total 123 285 250 Balance -23 875 -150 Assessment and Plan Problem List 1. Displaced intertrochanteric fracture of right femur, initial encounter for closed fracture Status Acute Onset Date 08/23/16 2. Hypertension Status Chronic Onset Date Unknown 3. Diabetes mellitus Status Chronic Onset Date Unknown 4. Dementia 5. Macrocytic anemia Status Acute Onset Date Unknown Plan -Patient with history of macrocytic anemia -B12 and folate levels within normal limits -Outpatient follow-up Current status: Fair, improved Anticipated discharge date: Today [facility] Patient care time: Time spent in chart review, patient interview, physical exam, CPOE, and care documentation: [ ] minutes Visit to patient today: [ ] Complexity of care: Moderate E&M Codes Rounding: Inpt-Moderate/[id number]
[2016-08-27 11:16] VITALS: BP 115/68
--- NOTE | 2016-08-27 14:43 | Discharge Summary ---
Discharge Summary Report Admit Date 08/24/16 Discharge Date 08/27/16 Admission Diagnosis 1. Right intertrochanteric femur fracture 2. Dementia 3. Hypertension 4. Hyperlipidemia 5. Diabetes mellitus Discharge Diagnosis 1. Right intertrochanteric femur fracture 2. Dementia 3. Hypertension 4. Hyperlipidemia 5. Diabetes mellitus Brief History The patient is a 80-year-old white female with a significant past medical history of dementia, rheumatoid arthritis, hypertension, hyperlipidemia, type 2 diabetes mellitus, autoimmune hepatitis who presented to [facility] emergency department on the day of admission secondary to fall with right hip pain. [facility] ER evaluation was consistent with right intertrochanteric hip fracture. The patient was seen by Shawn Walden M.D. (orthopedics) who requested the patient be admitted by the hospitalist service. Secondary to the above, the patient was admitted by Darlin Araya M.D. for further evaluation and treatment For other history present illness, past medical history, family history, social history, review of systems, and admission physical examination please see the patient's history and physical examination and ER visit note in the patient's medical record. Hospital Course The following problems and their management were noted during the patient's hospitalization: 1. Right intertrochanteric femur fracture The patient was admitted with right intertrochanteric femur fracture. The patient was seen in consultation by Shawn Walden M.D. She subsequently underwent closed reduction with nail fixation. Please see Dr. Walden's operative notes. She had an uneventful postoperative course. She is being discharged to care home facility for ongoing rehabilitation. Recommendations regarding activity, physical therapy, wound care, and follow-up per Dr. Walden. Please see his notes. 2. Dementia Severe. Stable. No further evaluation undertaken during the patient's hospitalization. Patient will require ongoing care at adult home/assisted living post rehabilitation. 3. Hypertension Blood pressure well controlled. Patient discharged on Cardizem 60 mg by mouth every 6 hours. Low-salt diet. Outpatient adjustments in therapy per facility attending. BP on discharge 115/68 mmHg 4. Hyperlipidemia Patient with history of hyperlipidemia. Patient discharged on a low-cholesterol low-fat diet. No other intervention at this time. 5. Diabetes mellitus Patient with history of diabetes mellitus. She was maintained on insulin sliding scale during her hospital stay. Blood glucose well maintained off all medications. Fasting blood sugar on day of discharge is 110 mg/dL. Hold ongoing medications. Recommend fasting blood sugar daily with possible medical therapy for persistent hyperglycemia. Follow-up per facility attending at care home facility. 6. Macrocytic anemia Patient with findings of mild macrocytic anemia. B12 and folate levels within normal limits. No further evaluation at this time. Outpatient follow-up with PCP. Discharge H&H was 11.6/35.9. MCV 106. General Appearance Alert, Cooperative, No acute distress Lungs Clear to auscultation Cardiovascular Regular Rate, Normal S1, Normal S2 Abdomen Normal bowel sounds, Soft, No tenderness Neurological Strength at 5/5 X4 ext, Cranial nerves 3-12 NL Psych/Mental Status Mood NL, confused Discharge Instructions/Meds For other recommendations regarding discharge diet, activity, followup, and discharge medications please see the patient's discharge instructions. Discharge condition: Fair, improved Greater than 30 min. was spent in the patient's discharge preparation including discharge interview and physical examination, progress note, discharge instructions, and discharge summary The patient was interviewed and examined on the day of discharge. E&M Codes Discharge: Inpt >30 min spent/[id number]
--- NOTE | 2016-08-27 14:43 | Discharge Summary ---
Discharge Summary Report Admit Date 08/24/16 Discharge Date 08/27/16 Admission Diagnosis 1. Right intertrochanteric femur fracture 2. Dementia 3. Hypertension 4. Hyperlipidemia 5. Diabetes mellitus Discharge Diagnosis 1. Right intertrochanteric femur fracture 2. Dementia 3. Hypertension 4. Hyperlipidemia 5. Diabetes mellitus Brief History The patient is a 80-year-old white female with a significant past medical history of dementia, rheumatoid arthritis, hypertension, hyperlipidemia, type 2 diabetes mellitus, autoimmune hepatitis who presented to [facility] emergency department on the day of admission secondary to fall with right hip pain. [facility] ER evaluation was consistent with right intertrochanteric hip fracture. The patient was seen by Shawn Walden M.D. (orthopedics) who requested the patient be admitted by the hospitalist service. Secondary to the above, the patient was admitted by Darlin Araya M.D. for further evaluation and treatment For other history present illness, past medical history, family history, social history, review of systems, and admission physical examination please see the patient's history and physical examination and ER visit note in the patient's medical record. Hospital Course The following problems and their management were noted during the patient's hospitalization: 1. Right intertrochanteric femur fracture The patient was admitted with right intertrochanteric femur fracture. The patient was seen in consultation by Shawn Walden M.D. She subsequently underwent closed reduction with nail fixation. Please see Dr. Walden's operative notes. She had an uneventful postoperative course. [facility]. Recommendations regarding activity, physical therapy, wound care, and follow-up per Dr. Walden. Please see his notes. 2. Dementia Severe. Stable. No further evaluation undertaken during the patient's hospitalization. Patient will require ongoing care at adult home/assisted living post rehabilitation. 3. Hypertension Blood pressure well controlled. Patient discharged on Cardizem 60 mg by mouth every 6 hours. Low-salt diet. Outpatient adjustments in therapy per facility attending. BP on discharge 115/68 mmHg 4. Hyperlipidemia Patient with history of hyperlipidemia. Patient discharged on a low-cholesterol low-fat diet. No other intervention at this time. 5. Diabetes mellitus Patient with history of diabetes mellitus. She was maintained on insulin sliding scale during her hospital stay. Blood glucose well maintained off all medications. Fasting blood sugar on day of discharge is 110 mg/dL. Hold ongoing medications. Recommend fasting blood sugar daily with possible medical therapy for persistent hyperglycemia. Follow-up per facility attending at [facility]. 6. Macrocytic anemia Patient with findings of mild macrocytic anemia. B12 and folate levels within normal limits. No further evaluation at this time. Outpatient follow-up with PCP. Discharge H&H was 11.6/35.9. MCV 106. General Appearance Alert, Cooperative, No acute distress Lungs Clear to auscultation Cardiovascular Regular Rate, Normal S1, Normal S2 Abdomen Normal bowel sounds, Soft, No tenderness Neurological Strength at 5/5 X4 ext, Cranial nerves 3-12 NL Psych/Mental Status Mood NL, confused Discharge Instructions/Meds For other recommendations regarding discharge diet, activity, followup, and discharge medications please see the patient's discharge instructions. Discharge condition: Fair, improved Greater than 30 min. was spent in the patient's discharge preparation including discharge interview and physical examination, progress note, discharge instructions, and discharge summary The patient was interviewed and examined on the day of discharge. E&M Codes Discharge: Inpt >30 min spent/[id number]
[2016-08-27] MEDS ORDERED: VICODIN EQUIVAL1 TAB PO (15:12)
[2016-08-27] MEDS ORDERED: DILTIAZEM HCL30 MG PO (15:12)
--- NOTE | 2016-08-27 15:15 | Provider's Discharge Care Plan ---
Problem, Goal, Plan Problem List 1. Displaced intertrochanteric fracture of right femur, initial encounter for closed fracture Goals: Improve disease control, Prevent disease progress Instructions: Follow up as directed, Take meds as directed, Follow-up with orthopedics as scheduled at time of discharge 2. Hypertension Goals: Improve disease control, Prevent disease progress Instructions: Follow up as directed, Take meds as directed, Avoid processed foods, Low-salt diet. 3. Diabetes mellitus Goals: Improve disease control, Prevent disease progress Instructions: Follow up as directed, Take meds as directed, Check fasting blood sugar daily. Call facility attending for recommendations if ongoing hyperglycemia.
[2016-08-27] MEDS ORDERED: CARDIZEM60 MG PO (15:29)
[2016-08-27 16:00] VITALS: BP 141/66
[2016-08-27 16:09] VITALS: BP 141/66
== END 2016-08-27 15:00 | disposition home or self-care (01) | DRG 482 ==
LOC: ED SRH 13:17 → ACUTE2 SRH 18:00 → TRANS SRH 18:00 → ACUTE2 SRH 19:35
PROVIDERS: Orthopaedic Surgery; ADMIT Internal Medicine
PROC: 0QS606Z Reposition Right Upper Femur with Intramedullary Internal Fixation Device, Open Approach (ICD-10-PCS; principal; 2016-08-24 11:00)
DX: S72.141A Displaced intertrochanteric fracture of right femur, initial encounter for closed fracture (principal); W01.0XXA Fall on same level from slipping, tripping and stumbling without subsequent striking against object, initial encounter; Y92.129 Unspecified place in nursing home as the place of occurrence of the external cause; Y99.8 Other external cause status; E11.9 Type 2 diabetes mellitus without complications; E86.0 Dehydration; R63.0 Anorexia; R47.81 Slurred speech; M06.9 Rheumatoid arthritis, unspecified; I10 Essential (primary) hypertension; E78.5 Hyperlipidemia, unspecified; K75.4 Autoimmune hepatitis; G30.9 Alzheimer's disease, unspecified; F02.80 Dementia in other diseases classified elsewhere, unspecified severity, without behavioral disturbance, psychotic disturbance, mood disturbance, and anxiety

== ENCOUNTER 2017-02-02 18:00 | Emergency (ER) | payer OTHER ==
[~2017-02-02 18:00] MED LIST: ACETAMINOPHEN325 MG PO; BISAC-EVAC10 MG PR; CARDIZEM60 MG PO; CRANBERRY; DILTIAZEM CD PO; DILTIAZEM HCL30 MG PO; DOCUSATE SODIU100 MG PO; ONDANSETRON ODT4 MG PO; POTASSIUM CHLO10 ME2 PO; SENNA-LAX8.6 MG PO; SEROQUEL25 MG PO; SERTRALINE HCL50 MG PO; VICODIN EQUIVAL1 TAB PO
--- NOTE | 2017-02-02 18:29 | ED CLINICAL REPORT ---
Clinical Report - Physicians/Mid Levels [facility] [address] [place] [address] 02/02/2017 18:01 Patient: HEATHER KAISER Time Seen: 18:15. Arrived- By ambulance. Historian- patient and EMS personnel. History limited by dementia. HISTORY OF PRESENT ILLNESS Chief Complaint: FALL. Location of injuries- (may have struck her head). The injury occurred just prior to arrival. Fell off a chair and landed on a hard surface; slipped (her wheelchair fell backwards). Occurred at home. The patient complains of mild pain. The patient sustained a blow to the head. No neck pain, loss of consciousness or seizure. Not dazed. REVIEW OF SYSTEMS No chest pain, difficulty breathing, headache, laceration or fever. She has had vomiting. PAST HISTORY See nurses notes. Depression. Autoimmune hepatitis. Diabetes Mellitus Type 2. Rheumatoid Arthritis. Hypercholesterolemia. Hyperlipidemia. Dementia - severe . Hypertension. Fall. Contusion. CODE STATUS: DNR with COMFORT MEASURES ONLY. Tetanus immunization status is up-to-date. SOCIAL HISTORY Never smoker. No alcohol use or drug use. ADDITIONAL NOTES The nursing notes have been reviewed. PHYSICAL EXAM Vital Signs: 02/02/2017 18:09 BP: 160/72. HR: 100. RR: 16. O2 saturation: 100%. Temp: 97.7 F. Huffman-Joseph pain scale: 0/10. Appearance: Alert. No acute distress. Head: Head non-tender. No swelling of head. Eyes: EOM intact. ENT: Pharynx normal. Neck: Painless ROM. Non-tender. CVS: Pulses normal. Respiratory: Breath sounds normal. Chest nontender. Abdomen: No visible injury. Soft and nontender. Back: No tenderness. Skin: Skin intact. Skin warm and dry. Normal skin color. Extremities: Normal inspection. Pelvis stable. Extremities atraumatic. Neuro: [place] Coma Scale: 14- eyes open spontaneously (4); best verbal response- disoriented (4); best motor response- obeys commands (6). PROGRESS AND PROCEDURES Course of Care: Pt without evident pain or tenderness of head / scalp or neck / spine. No other evident injury now. She does not appear to be in any discomfort. Pt's POLST clearly states DNR with comfort measures ONLY. Head CT is not indicated as it will not change managment. Patient/family counseled. Old ED records reviewed. Disposition: Discharged to alf. Condition: stable and improved. CLINICAL IMPRESSION Chronic late onset Alzheimer's disease. No behavioral disturbance. Fall from chair and on same level by slipping. POLST with COMFORT MEASURES ONLY. (Electronically signed by Abhinav Fernandes DO 02/03/2017 9:41)
--- NOTE | 2017-02-02 18:29 | ED NURSING NOTES ---
Clinical Report - Nurses [facility] [address] [place] [address] 02/02/2017 18:01 Patient: HEATHER KAISER TRIAGE Triage time 1805 PM. Acuity: LEVEL 4. Chief Complaint: FALL, onto a tile surface and the ground; lost balance (Fell out of wheelchair -backwards NO LOC). Alert (confused). No acute distress. --18:21 Angela Singh R.N. 18:09 02/02/17. BP: 160/72 (small adult cuff) taken on the left arm, via an automated monitor, while lying. HR: 100. RR: 16. O2 saturation: 100% on room air. Temp: 97.7 F (oral). Huffman-Joseph pain scale: 0/10. --18:21 Angela Singh R.N. Weight: 68 kg estimated. Height/Length: 64 inches Estimated. BMI: 25.8. --18:13 Angela Singh R.N. Medications Atorvastatin Calcium Oral (Tablet 40 mg) 1/2 tablet, daily. AzaTHIOprine Oral (Tablet 50 mg) 2 tablets, daily. Calcarb 600/D Oral (Tablet 600-400 mg-unit) 2 tablets, daily. Diltiazem HCl Oral 300 mg, daily. Donepezil HCl Oral (Tablet 5 mg), daily. Hydrochlorothiazide Oral (Tablet 12.5 mg) 1 tablet, daily. Hydrochlorothiazide Oral 25 mg, daily. Klor-Con Oral 10 mEq, bid (take 2 tabs). Ondansetron HCl Oral (Tablet 8 mg) 1 tablet, Q 8hrs. Sertraline HCl Oral (Tablet 50 mg) 1 tablet, daily. Ventolin HFA Inhalation 2 puffs, Q 4-6hrs. Vitamin B-12 Oral (Tablet 500 mcg) 1 tablet, daily. Vitamin D3 Oral (Tablet 1000 unit) 2 tablets, daily. --18:16 Angela Singh R.N. Allergies Clarithromycin. --18:16 Singh, Angela, R.N. Erythromycin. Latex. Penicillins. --18:16 Angela Singh R.N. Medication/allergy information source: the patient's imported external medical record. --18:21 Angela Singh R.N. History Arrived by EMS. Historian: EMS. ( Pt brought over by EMS, as per report pt fell while sitting on a wheelchair (backwards), pt with dementia, unable to obtain any information from her. As per EMS no LOC reported, did hit the back of her head on the floor.). Location of injuries: occiput. This occurred just prior to arrival. No loss of consciousness. No alteration in mental status, dizziness or trouble walking. Treatment BELT OPERATOR: None. Trauma activation: Pre-hospital notification of patient arrival was received. PAST MEDICAL HX: Tetanus status: up-to-date. Immunizations: up-to-date. SOCIAL HX: No alcohol use or drug use. No infectious disease exposure. ABUSE ASSESSMENT: Abuse assessment: unable to obtain due to patient condition. No report of abuse. SELF HARM ASSESSMENT: A self harm assessment was performed. (unable to assess). FALL RISK ASSESSMENT: Fall risk assessment completed. No fall risk identified. NUTRITIONAL RISK ASSESSMENT: The nutritional risk assessment revealed no deficiencies. FUNCTIONAL ASSESSMENT: Functional assessment: no impairments noted. LEARNING NEEDS ASSESSMENT: The learning needs assessment revealed no barriers. SKIN INTEGRITY ASSESSMENT: Skin integrity risk assessment completed. No skin integrity risk identified. --18:21 Angela Singh R.N. PROBLEMS: Dehydration. Hip Fracture. Depression. Autoimmune hepatitis. Diabetes Mellitus Type 2. Rheumatoid Arthritis. Hypercholesterolemia. Hyperlipidemia. Dementia. Hypertension. Fall. Contusion. --18:17 Angela Singh R.N. ADDITIONAL SURGERIES: Unknown. --18:17 Angela Singh R.N. Interventions ID band on patient. --18:21 Angela Singh R.N. PHYSICAL ASSESSMENT To room via stretcher. GENERAL / NEURO / PSYCH: Appears in no acute distress. The patient is disoriented to person, place, time and situation (Dementia). HEENT: Pupils equal, round and reactive to light. Head non-tender. RESPIRATORY: Respirations not labored. Chest nontender. Breath sounds within normal limits. CVS: Pulses within normal limits. Capillary refill less than 2 seconds. GI / : Abdomen soft and nontender. EXTREMITIES: Extremities exhibit normal ROM. Neuro-vascular status intact to the extremity. ( Nothing noted, but unable to assess). SKIN: Skin intact. Skin is warm and dry. --18: Angela Singh R.N. NURSING PROGRESS NOTES The initial plan of care for this patient has been created This plan of care was discussed with the patient. Patient gowned. Reassurance given. Two patient identifiers checked. Call light placed in reach. Side rails up x 2. Bed placed in lowest position. Brakes of bed on. Patient ready for evaluation- ED physician notified. --18: Angela Singh R.N. DISPOSITION / DISCHARGE late entry - 18:50 PM. Departure time: 1850 PM. Condition at departure: stable. The goals identified in the patient's plan of care were met. No learning barriers present. Discharge instructions provided and reviewed with the family. Family verbalized understanding. Written instructions provided in Icelandic. No warning instructions, medication instructions, treatment instructions or referrals given to the patient. The patient was discharged by the physician. She was discharged to the correction and accompanied by family. She left the Emergency Department in a wheelchair and via private vehicle. Family member driving. FALL RISK ASSESSMENT: Fall risk assessment completed. No fall risk identified. --:28 Angela Singh R.N. 18:50 02/02/17. BP: deferred. HR: deferred. RR: deferred. O2 saturation: deferred. Temp: deferred. Pain level now deferred. --:28 Angela Singh R.N. Locked/Released at 02/02/2017 22:30 by Angela Singh R.N.
--- NOTE | 2017-02-02 18:29 | ED CLINICAL REPORT ---
Clinical Report - Physicians/Mid Levels [facility] [address] [place] [address] 02/02/2017 18:01 Patient: HEATHER KAISER Time Seen: 18:15. Arrived- By ambulance. Historian- patient and EMS personnel. History limited by dementia. HISTORY OF PRESENT ILLNESS Chief Complaint: FALL. Location of injuries- (may have struck her head). The injury occurred just prior to arrival. Fell off a chair and landed on a hard surface; slipped (her wheelchair fell backwards). Occurred at home. The patient complains of mild pain. The patient sustained a blow to the head. No neck pain, loss of consciousness or seizure. Not dazed. REVIEW OF SYSTEMS No chest pain, difficulty breathing, headache, laceration or fever. She has had vomiting. PAST HISTORY See nurses notes. Depression. Autoimmune hepatitis. Diabetes Mellitus Type 2. Rheumatoid Arthritis. Hypercholesterolemia. Hyperlipidemia. Dementia - severe . Hypertension. Fall. Contusion. CODE STATUS: DNR with COMFORT MEASURES ONLY. Tetanus immunization status is up-to-date. SOCIAL HISTORY Never smoker. No alcohol use or drug use. ADDITIONAL NOTES The nursing notes have been reviewed. PHYSICAL EXAM Vital Signs: 02/02/2017 18:09 BP: 160/72. HR: 100. RR: 16. O2 saturation: 100%. Temp: 97.7 F. Huffman-Joseph pain scale: 0/10. Appearance: Alert. No acute distress. Head: Head non-tender. No swelling of head. Eyes: EOM intact. ENT: Pharynx normal. Neck: Painless ROM. Non-tender. CVS: Pulses normal. Respiratory: Breath sounds normal. Chest nontender. Abdomen: No visible injury. Soft and nontender. Back: No tenderness. Skin: Skin intact. Skin warm and dry. Normal skin color. Extremities: Normal inspection. Pelvis stable. Extremities atraumatic. Neuro: [place] Coma Scale: 14- eyes open spontaneously (4); best verbal response- disoriented (4); best motor response- obeys commands (6). PROGRESS AND PROCEDURES Course of Care: Pt without evident pain or tenderness of head / scalp or neck / spine. No other evident injury now. She does not appear to be in any discomfort. Pt's POLST clearly states DNR with comfort measures ONLY. Head CT is not indicated as it will not change managment. Patient/family counseled. Old ED records reviewed. Disposition: Discharged to care home. Condition: stable and improved. CLINICAL IMPRESSION Chronic late onset Alzheimer's disease. No behavioral disturbance. Fall from chair and on same level by slipping. POLST with COMFORT MEASURES ONLY. (Electronically signed by Abhinav Fernandes DO 02/03/2017 9:41)
--- NOTE | 2017-02-03 09:42 | ED MAR SUMMARY ---
..... Medication Administration Record [facility] [address] [place], [place] [id number] Patient: HEATHER KAISER Visit ID: [id number] 81y, F Weight: 68.0 kg Height/Length: 64 in BMI: 25.8 ALLERGIES: Clarithromycin, Erythromycin, Latex, Penicillins
--- NOTE | 2017-02-03 09:42 | ED MAR SUMMARY ---
..... Medication Administration Record [facility] [address] [place], [place] [id number] Patient: HEATHER KAISER Visit ID: [id number] 81y, F Weight: 68.0 kg Height/Length: 64 in BMI: 25.8 ALLERGIES: Clarithromycin, Erythromycin, Latex, Penicillins
--- NOTE | 2017-02-03 09:42 | ED DISCHARGE INSTRUCTIONS ---
Patient: HEATHER KAISER General Instructions [facility] VisitID: [id number] [place] [address] 81y, F Registration Date/Time: 02/02/2017 Chronic late onset Alzheimer's disease. No behavioral disturbance. Fall from chair and on same level by slipping. POLST with COMFORT MEASURES ONLY. ADDITIONAL INFORMATION Mechanical Fall You have had a fall today. It appears that the cause is mechanical. That means that you slipped, tripped or lost your balance. If your fall had been due to fainting or a seizure, further tests would be required. Home Care: Rest today and resume your normal activities when you are feeling back to normal. If you were injured during the fall, follow the advice from your doctor regarding care of your injury. You may use acetaminophen (Tylenol) or ibuprofen (Motrin, Advil) to control pain, unless another pain medicine was prescribed. [NOTE: If you have chronic liver or kidney disease or ever had a stomach ulcer or GI bleeding, talk with your doctor before using these medicines.] Fall Prevention: Was there anything that caused your fall that can be fixed, removed, or replaced? Make your home safe by keeping walkways clear of objects you may trip over. Use non-slip pads under rugs. Do not walk in poorly lit areas. Do not stand on chairs or wobbly ladders. Use caution when reaching overhead or looking upward. This position can cause a loss of balance. Be sure your shoes fit properly, have non-slip bottoms and are in good condition. Be cautious when going up and down curbs, and walking on uneven sidewalks. If your balance is poor, consider using a cane or walker. Stay as active as you can. Balance, flexibility, strength, and endurance all come from exercise. They all play a role in preventing falls. Follow Up with your doctor or as advised by our staff. Get Prompt Medical Attention if any of the following occur: Repeated mechanical falls, or unexplained falls Dizziness, fainting or seizure Severe headache Chest pain or shortness of breath Palpitations (very rapid or very slow or irregular heartbeat) Blood in vomit, stools (black or red color) Weakness of an arm or leg or one side of the face Difficulty with speech or vision Dementia & Caregiver Support (Advice For The Caregiver) Dementia is a chronic condition that affects the brain. It causes a gradual loss of memory. There may be trouble recognizing familiar people and places, or knowing what day it is. Memory, judgment and decision-making may also be affected. In severe cases there may be limited or no response to verbal commands. The most common form of dementia is Alzheimers disease. The cause of Alzheimer's disease is not fully understood. So far there is no cure. However, there are medicines to slow down the progress of the disease and to treat some of the symptoms. Some of the less common causes for dementia are curable. So, it is important to have a complete medical evaluation to look for conditions that can be treated. Home Care: A responsible person must be with the person who has advanced dementia at all times. He/she should not be left alone or unsupervised. In the case of advanced advanced dementia, keep medicines (prescription and [id number]) in a secure place, under the caregivers control. A person with advanced dementia should not be allowed to take their own medicines. This needs to be supervised by the caregiver. Ways to help a person with dementia: Activities:Keep to a daily routine. Changes in environment and schedules can be a source of stress for someone with dementia. Make a time schedule for common tasks of living such as bathing, dressing, taking medicines, meal times, going for walks, shopping, naps, and bed time. Communication:When speaking to a person with dementia, talk slowly and clearly. Use a gentle tone of voice. Choose short, simple words and sentences. Ask one question at a time. Do not interrupt, criticize or argue. Be calm and supportive. Use friendly facial expressions. Use pointing and touching to help communicate. If there has been loss of long-term memory, do not ask questions about past events. Instead, talk about what is happening now. Behavioral tips:Use lists, signs, family photos, clocks and calendars as memory aids. Label cabinets and drawers. Try to distract, not confront, the patient. When he/she becomes frustrated or upset, direct his/her attention to eating or some other activity of interest. Medical-Legal tips: Talk to your doctor and/or director of business operations about getting a Power of Sandwich Machine Operator for health care and for financial decisions. It is best to do this while the person can still sign legal documents and make his/her own legal decisions. Otherwise a court order will be needed. Support For The Caregiver: As the caregiver, you will need a lot of support for yourself. Caring for a person with dementia is a full-time job. It can drain your emotions and lead to frustration and anger towards the one you love. It is common to have feelings of grief over losing the familiar relationship that you once knew. As a caregiver to someone with dementia, you are at higher risk for depression, anxiety and stress reactions. Here are some tips to help you cope with being a caregiver: Learn about dementia and Alzheimers disease so you know what to expect. Find out about the resources in your community, including adult day care programs. Ask our staff for a referral to a social service worker, if needed. Take care of yourself with a good diet, exercise and plenty of rest. Ask for help. Share some of the caretaking duties with family and friends. Make personal time for yourself. This is essential! Consider hiring an in-home sitter. Seek counseling and/or join a caregivers support group. Don't isolate yourself, or try to cope with this alone. In a support group, you can learn from others in a similar situation. Contact the Alzheimers Association ( ) or visit their website (www.alz.org) for more information. Follow-Up with the patients doctor or as advised by our staff. Get Prompt Medical Attention if any of the following occur: Frequent falling Refusal to eat or drink Violent behavior or behavior becomes too difficult to manage at home Increased drowsiness, or failure to respond normally Increasing headache, nausea or repeated vomiting Numbness or weakness of the face, one arm or one leg Slurred speech, trouble speaking, walking or seeing Fainting spell, dizziness or seizure Unexplained fever over 100.4 F (38.0 C) oral You have been given the following additional information: Fall, Mechanical Dementia, Any Type (Electronically signed by Abhinav Fernandes DO 02/03/2017 9:41)
--- NOTE | 2017-02-03 09:42 | ED MED RECONCILIATION SUMMARY ---
Patient: HEATHER KAISER Medication Reconciliation Report [facility] VisitID: [id number] [address] [place] [address] 81y, F Registration Date/Time: 02/02/2017 Weight: 68.0 kg Height/Length: 64 in. BMI: 25.8 ALLERGIES: Clarithromycin, Erythromycin, Latex, Penicillins The patient's Home Medications are listed below: THE FOLLOWING MEDICATIONS NEED TO BE RECONCILED: Atorvastatin Calcium Oral (40 mg) 1/2 tablet, daily AzaTHIOprine Oral (50 mg) 2 tablets, daily Calcarb 600/D Oral (600-400 mg-unit) 2 tablets, daily Diltiazem HCl Oral 300 mg, daily Donepezil HCl Oral (5 mg), daily Hydrochlorothiazide Oral (12.5 mg) 1 tablet, daily Hydrochlorothiazide Oral 25 mg, daily Klor-Con Oral 10 mEq, bid, take 2 tabs Ondansetron HCl Oral (8 mg) 1 tablet, Q 8hrs Sertraline HCl Oral (50 mg) 1 tablet, daily Ventolin HFA Inhalation 2 puffs, Q 4-6hrs Vitamin B-12 Oral (500 mcg) 1 tablet, daily Vitamin D3 Oral (1000 unit) 2 tablets, daily The source(s) of the original Home Medication information: patient's imported external medical record The following Medications were given to the patient in the Emergency Department: None. The following Medications were prescribed to the patient: None.
--- NOTE | 2017-02-03 09:42 | ED MED RECONCILIATION SUMMARY ---
Patient: HEATHER KAISER Medication Reconciliation Report [facility] VisitID: [id number] [address] [place] [address] 81y, F Registration Date/Time: 02/02/2017 Weight: 68.0 kg Height/Length: 64 in. BMI: 25.8 ALLERGIES: Clarithromycin, Erythromycin, Latex, Penicillins The patient's Home Medications are listed below: THE FOLLOWING MEDICATIONS NEED TO BE RECONCILED: Atorvastatin Calcium Oral (40 mg) 1/2 tablet, daily AzaTHIOprine Oral (50 mg) 2 tablets, daily Calcarb 600/D Oral (600-400 mg-unit) 2 tablets, daily Diltiazem HCl Oral 300 mg, daily Donepezil HCl Oral (5 mg), daily Hydrochlorothiazide Oral (12.5 mg) 1 tablet, daily Hydrochlorothiazide Oral 25 mg, daily Klor-Con Oral 10 mEq, bid, take 2 tabs Ondansetron HCl Oral (8 mg) 1 tablet, Q 8hrs Sertraline HCl Oral (50 mg) 1 tablet, daily Ventolin HFA Inhalation 2 puffs, Q 4-6hrs Vitamin B-12 Oral (500 mcg) 1 tablet, daily Vitamin D3 Oral (1000 unit) 2 tablets, daily The source(s) of the original Home Medication information: patient's imported external medical record The following Medications were given to the patient in the Emergency Department: None. The following Medications were prescribed to the patient: None.
--- NOTE | 2017-02-03 09:42 | ED DISCHARGE INSTRUCTIONS ---
Patient: HEATHER KAISER General Instructions [facility] VisitID: [id number] [place] [address] 81y, F Registration Date/Time: 02/02/2017 Chronic late onset Alzheimer's disease. No behavioral disturbance. Fall from chair and on same level by slipping. POLST with COMFORT MEASURES ONLY. ADDITIONAL INFORMATION Mechanical Fall You have had a fall today. It appears that the cause is mechanical. That means that you slipped, tripped or lost your balance. If your fall had been due to fainting or a seizure, further tests would be required. Home Care: Rest today and resume your normal activities when you are feeling back to normal. If you were injured during the fall, follow the advice from your doctor regarding care of your injury. You may use acetaminophen (Tylenol) or ibuprofen (Motrin, Advil) to control pain, unless another pain medicine was prescribed. [NOTE: If you have chronic liver or kidney disease or ever had a stomach ulcer or GI bleeding, talk with your doctor before using these medicines.] Fall Prevention: Was there anything that caused your fall that can be fixed, removed, or replaced? Make your home safe by keeping walkways clear of objects you may trip over. Use non-slip pads under rugs. Do not walk in poorly lit areas. Do not stand on chairs or wobbly ladders. Use caution when reaching overhead or looking upward. This position can cause a loss of balance. Be sure your shoes fit properly, have non-slip bottoms and are in good condition. Be cautious when going up and down curbs, and walking on uneven sidewalks. If your balance is poor, consider using a cane or walker. Stay as active as you can. Balance, flexibility, strength, and endurance all come from exercise. They all play a role in preventing falls. Follow Up with your doctor or as advised by our staff. Get Prompt Medical Attention if any of the following occur: Repeated mechanical falls, or unexplained falls Dizziness, fainting or seizure Severe headache Chest pain or shortness of breath Palpitations (very rapid or very slow or irregular heartbeat) Blood in vomit, stools (black or red color) Weakness of an arm or leg or one side of the face Difficulty with speech or vision Dementia & Caregiver Support (Advice For The Caregiver) Dementia is a chronic condition that affects the brain. It causes a gradual loss of memory. There may be trouble recognizing familiar people and places, or knowing what day it is. Memory, judgment and decision-making may also be affected. In severe cases there may be limited or no response to verbal commands. The most common form of dementia is Alzheimers disease. The cause of Alzheimer's disease is not fully understood. So far there is no cure. However, there are medicines to slow down the progress of the disease and to treat some of the symptoms. Some of the less common causes for dementia are curable. So, it is important to have a complete medical evaluation to look for conditions that can be treated. Home Care: A responsible person must be with the person who has advanced dementia at all times. He/she should not be left alone or unsupervised. In the case of advanced advanced dementia, keep medicines (prescription and [id number]) in a secure place, under the caregivers control. A person with advanced dementia should not be allowed to take their own medicines. This needs to be supervised by the caregiver. Ways to help a person with dementia: Activities:Keep to a daily routine. Changes in environment and schedules can be a source of stress for someone with dementia. Make a time schedule for common tasks of living such as bathing, dressing, taking medicines, meal times, going for walks, shopping, naps, and bed time. Communication:When speaking to a person with dementia, talk slowly and clearly. Use a gentle tone of voice. Choose short, simple words and sentences. Ask one question at a time. Do not interrupt, criticize or argue. Be calm and supportive. Use friendly facial expressions. Use pointing and touching to help communicate. If there has been loss of long-term memory, do not ask questions about past events. Instead, talk about what is happening now. Behavioral tips:Use lists, signs, family photos, clocks and calendars as memory aids. Label cabinets and drawers. Try to distract, not confront, the patient. When he/she becomes frustrated or upset, direct his/her attention to eating or some other activity of interest. Medical-Legal tips: Talk to your doctor and/or television repairman about getting a Power of Police Commanding Officer for health care and for financial decisions. It is best to do this while the person can still sign legal documents and make his/her own legal decisions. Otherwise a court order will be needed. Support For The Caregiver: As the caregiver, you will need a lot of support for yourself. Caring for a person with dementia is a full-time job. It can drain your emotions and lead to frustration and anger towards the one you love. It is common to have feelings of grief over losing the familiar relationship that you once knew. As a caregiver to someone with dementia, you are at higher risk for depression, anxiety and stress reactions. Here are some tips to help you cope with being a caregiver: Learn about dementia and Alzheimers disease so you know what to expect. Find out about the resources in your community, including adult day care programs. Ask our staff for a referral to a social science professor, if needed. Take care of yourself with a good diet, exercise and plenty of rest. Ask for help. Share some of the caretaking duties with family and friends. Make personal time for yourself. This is essential! Consider hiring an in-home sitter. Seek counseling and/or join a caregivers support group. Don't isolate yourself, or try to cope with this alone. In a support group, you can learn from others in a similar situation. Contact the Alzheimers Association ( ) or visit their website (www.alz.org) for more information. Follow-Up with the patients doctor or as advised by our staff. Get Prompt Medical Attention if any of the following occur: Frequent falling Refusal to eat or drink Violent behavior or behavior becomes too difficult to manage at home Increased drowsiness, or failure to respond normally Increasing headache, nausea or repeated vomiting Numbness or weakness of the face, one arm or one leg Slurred speech, trouble speaking, walking or seeing Fainting spell, dizziness or seizure Unexplained fever over 100.4 F (38.0 C) oral You have been given the following additional information: Fall, Mechanical Dementia, Any Type (Electronically signed by Abhinav Fernandes DO 02/03/2017 9:41)
== END 2017-02-02 18:50 | disposition home or self-care (01) ==
LOC: ED SRH 18:00
DX: G30.1 Alzheimer's disease with late onset (principal); F02.80 Dementia in other diseases classified elsewhere, unspecified severity, without behavioral disturbance, psychotic disturbance, mood disturbance, and anxiety; Z04.3 Encounter for examination and observation following other accident

== ENCOUNTER 2017-02-13 08:01 | Emergency (ER) | payer OTHER ==
--- NOTE | 2017-02-13 10:34 | ED CLINICAL REPORT ---
Clinical Report - Physicians/Mid Levels [facility] [address] [place] [address] 02/13/2017 8:03 Patient: HEATHER KAISER Time Seen: 08:22 Feb 13 2017. Arrived- By ambulance. Historian- patient and EMS personnel. HISTORY OF PRESENT ILLNESS Location of injuries- right hip. Chief Complaint: INJURY TO RIGHT LOWER EXTREMITY (HIP). The injury occurred just prior to arrival. Occurred at home. ( She has fallen multiple times in the past 2 days from her w/c. She has multiple bruises and swellilng in the right hip and lateral thigh, guarding the hip.).). Fell. The patient complains of moderate pain. No blow to the head, neck pain or loss of consciousness. REVIEW OF SYSTEMS The patient complains of pain on weight bearing. All systems otherwise negative, except as recorded above. PAST HISTORY See nurses notes. Tetanus immunization status is up-to-date. SOCIAL HISTORY Never smoker. No alcohol use or drug use. Is a local resident. ADDITIONAL NOTES The nursing notes have been reviewed. PHYSICAL EXAM Vital Signs: 02/13/2017 08:05 BP: 151/54. HR: 65. RR: 16. O2 saturation: 100%. Temp: 97.2 F. Huffman-Joseph pain scale: 6/10. Appearance: Alert. Patient in moderate distress. Head: Head non-tender. No Rubio's sign or raccoon eyes. Eyes: Pupils equal, round and reactive to light. EOM intact. Neck: Painless ROM. Non-tender. Non-tender. No vertebral tenderness. CVS: Pulses normal. Respiratory: Chest nontender. Abdomen: No visible injury. Soft and nontender. Back: No tenderness. No vertebral point tenderness. Skin: Skin intact. Skin warm and dry. Normal skin color. Normal skin turgor. Extremities: Normal inspection. Right hip: moderate tenderness and swelling and large ecchymosis located in the lateral aspect of the hip. Limited ROM secondary to pain. Neurovascular intact distally. Extremities atraumatic. No lower extremity edema. Neuro: Moderately altered mental status: confused. Patient slow to respond. Responds to simple questions and commands. Eyes open spontaneously. Best verbal response: disoriented. Best motor response: localizes to pain. ((at baseline per family)). No motor deficit. No sensory deficit. LABS, X-RAYS, AND EKG EKG: No acute ischemia. Normal sinus rhythm. Normal P waves. Normal ELLEN. Normal QRS complex. Normal axis. Normal ST and T waves, QT and QTc. Non-specific T wave inversion in lead V1 and V2. The study has been interpreted contemporaneously. The study has been independently viewed by me. The EKG appears to be a good tracing. Laboratory Tests: UA-Culture if indicated: (KATIE: 02/13/2017 08:40) ( [facility] 02/13/2017 09:13) Final results Test Result Flag Units (Reference) URINE COLOR YELLOW URINE APPEARANCE CLEAR URINE GLUCOSE NEGATIVE (NEGATIVE) URINE BILIRUBIN NEGATIVE (NEGATIVE) URINE KETONE NEGATIVE (NEGATIVE) URINE SPECIFIC GRAVITY >= 1.030 (1.010-1.030) URINE PH 5.5 (5.0-8.0) URINE PROTEIN NEGATIVE (NEGATIVE) URINE UROBILINOGEN 0.2 EU/dL (0.2-1.0) URINE NITRITE POSITIVE (NEGATIVE) URINE BLOOD NEGATIVE (NEGATIVE) URINE LEUK ESTERASE TRACE (NEGATIVE) URINE RBC NONE SEEN rbc/hpf (0-1) URINE WBC 15-25 wbc/hpf (0-1) URINE EPITHELIAL CELLS RARE EPI/hpf (0-5) URINE BACTERIA MANY (4+) (NONE SEEN) URINE COMMENT CULTURE INDICATED URINE CULTURES ARE SET-UP BASED ON THE FOLLOWING CRITERIA:POSITIVE NITRITEPOSITIVE LEUKOCYTE ESTERASEGREATER THAN 10 WHITE BLOOD CELLSMODERATE (2+) OR GREATER BACTERIA CBC w Diff: (KATIE: 02/13/2017 08:40) ( [facility] 02/13/2017 09:06) Final results Test Result Flag Units (Reference) WHITE BLOOD COUNT 8.9 K/uL (4.5-11.5) RED BLOOD COUNT 3.38 L M/uL (4.00-5.20) HEMOGLOBIN 12.1 gm/dL (12.0-16.0) HEMATOCRIT 36.4 % (36.0-46.0) MEAN CELL VOLUME 108 H fL (80-100) MEAN CORPUSCULAR HGB 36 H pg (26-34) MEAN CORPUSCULAR HGB CONC 33 g/dL (31-37) RED CELL DISTRIBUTION WIDTH 14.9 H % (11.6-14.8) PLATELET COUNT 292 K/uL (150-400) NEUTROPHIL % 67.4 % (50-75) LYMPH % 20.7 L % (25-40) MONO % 7.5 % (3-14) EOSINOPHIL % 3.8 % (0-4) BASOPHIL % 0.6 % (0-2) PT with INR: (KATIE: 02/13/2017 08:40) ( [facility] 02/13/2017 09:10) Final results Test Result Flag Units (Reference) INR 0.9 (0.8-1.2) Low Intensity Therapy: INR 1.5-2.0 PT range 18.5-23.1Mod.Intensity Therapy: INR 2.0-3.0 PT range 23.1-31.5High Intensity Therapy: INR 2.5-3.5 PT range 27.4-35.5High Intensity Therapy 2: INR 3.0-4.0 PT range 31.5-39.3 TSH: (KATIE: 02/13/2017 08:40) ( [facility] 02/13/2017 09:30) Final results Test Result Flag Units (Reference) THYROID STIMULATING HORMONE 0.952 uIU/mL (0.30-3.74) CHEM 13 PANEL: (KATIE: 02/13/2017 08:40) ( [facility] 02/13/2017 09:29) Final results Test Result Flag Units (Reference) GLUCOSE 88 mg/dL (70-110) BUN 14 mg/dL (7-18) CREATININE 0.5 L mg/dL (0.6-1.3) Estimated GFR >60 mL/min Estimated GFR- >60 mL/min Note: Persistent reduction over 3 months in eGFR<60 mL/min/1.73 m2 defines CKD. Patients with eGFR values>=60 mL/min/1.73 m2 may also have CKD if evidence ofpersistent proteinuria. Additional information may be foundat www.kidney.org. SODIUM 143 mmol/L (136-145) POTASSIUM 4.0 mmol/L (3.5-5.1) CHLORIDE 106 mmol/L (98-107) CARBON DIOXIDE 28 mmol/L (21-32) CALCIUM 8.4 L mg/dL (8.5-10.1) TOTAL PROTEIN 6.6 g/dL (6.4-8.2) ALBUMIN 2.9 L g/dL (3.3-5.0) BILIRUBIN, TOTAL 0.5 mg/dL (0.0-1.0) ALKALINE PHOSPHATASE 110 U/L (46-116) AST (SGOT) 16 U/L (15-37) ALT (SGPT) 15 U/L (12-78) CPK 47 U/L (24-260) MAGNESIUM 2.1 mg/dL (1.8-2.4) TROPONIN I <0.05 ng/mL (0.00-1.5) TROPONIN REFERENCE RANGE:<0.1 NEGATIVE0.1-1.5 INDETERMINANT>1.5 POSITIVE . PROGRESS AND PROCEDURES Course of Care: the patient is a pleasant 81-year-old female with past medical history significant for dementia presenting for evaluation of right-sided hip pain following a fall from a wheelchair. Patient was evaluated by the previous physician. I've taken over care at the change of shift. Plan is following patient's lab studies and imaging. Workup is remarkable for urinary tract infection. Troponin is noted to be negative. No other acute findings noted on patient's evaluation. Imaging also does not show any signs of acute osseous abnormality. Hardware seems to be intact and in place. No dislocations or acute fractures noted. Patient continues to be neurovascularly intact. First dose of antibiotics provided here in the emergenBecause the patient's allergy to penicillin, unable to provide patient with ceftriaxone. Patient also does not recall her specific reaction to penicillins or if she has had any intolerances to cephalosporins. Patient also is found to not be able to swallow pills and Bactrim liquid was the medication at this time that would be the most appropriate. Did try Macrobid however because of the inability to swallow pills, patient is not able to take this medication. Had a discussion with the family in regards to the patient's workup here in emergency department including diagnosis, home care, follow-up, and return precautions. All questions have been answered. The patient and family expressed understanding of these instructions and was agreeable to them. Disposition: Discharged. Condition: good. CLINICAL IMPRESSION 02/13/2017 08:05 BP: 151/54. HR: 65. RR: 16. O2 saturation: 100%. Temp: 97.2 F. Huffman-Joseph pain scale: 6/10. Hypertensive. Oxygen saturation normal. Essential hypertension. Acute urinary tract infection. Single contusion to the right hip. INSTRUCTIONS Warnings: GENERAL WARNINGS: Return or contact your physician immediately if your condition worsens or changes unexpectedly, if not improving as expected, or if other problems arise. SPECIFICALLY, return if you develop weakness, numbness, tingling, pain or incontinence. Your Current Medications: CONTINUE TAKING THE FOLLOWING MEDICATIONS: Atorvastatin Calcium Oral : Tablet 40 mg, 1/2 tablet daily. AzaTHIOprine Oral : Tablet 50 mg, 2 tablets daily. Calcarb 600/D Oral : Tablet 600-400 mg-unit, 2 tablets daily. Diltiazem HCl Oral : 300 mg daily. Donepezil HCl Oral : Tablet 5 mg, daily. Hydrochlorothiazide Oral : Tablet 12.5 mg, 1 tablet daily. Hydrochlorothiazide Oral : 25 mg daily. Klor-Con Oral : 10 mEq bid, take 2 tabs. Ondansetron HCl Oral : Tablet 8 mg, 1 tablet Q 8hrs. Sertraline HCl Oral : Tablet 50 mg, 1 tablet daily. Ventolin HFA Inhalation : 2 puffs Q 4-6hrs. Vitamin B-12 Oral : Tablet 500 mcg, 1 tablet daily. Vitamin D3 Oral : Tablet 1000 unit, 2 tablets daily. Prescription Medications: Bactrim Liquid 40mg/200mg/5 mL: every 12 hours for 7 days. No refill. Substitution is permissible. (20 mL PO. Disp sufficient quant.) Tramadol 50 mg: take 1 orally every 8 hours as needed for pain and stiffness. Dispense twenty (20). No refills. Follow-up: Return to the emergency department as needed. Follow up with your doctor in three days. Reason for referral: recheck today's concerns. Summary of care provided to patient via paper. Screening today revealed the patient's blood pressure to be in the hypertensive range. Blood pressure screening was not performed during this visit because the patient has an active diagnosis of hypertension. The patient should follow up with a primary care provider for blood pressure management. Understanding of the discharge instructions verbalized by patient. (Electronically signed by Estuardo Song Dr. 02/13/2017 12:07)
--- NOTE | 2017-02-13 10:34 | ED NURSING NOTES ---
Clinical Report - Nurses [facility] [address] [place] [address] 02/13/2017 8:03 Patient: HEATHER KAISER TRIAGE Triage time 08:03. Acuity: LEVEL 3. Chief Complaint: FALL (She has fallen multiple times in the past 2 days from her w/c. She has multiple bruises and swellilng in the right hip and lateral thigh, guarding the hip.). SEPSIS SCREEN: Sepsis Screen. Negative (no infection suspected/documented). RUCHI COMA SCORE: [place] Coma Scale: 14- eyes open spontaneously (4); best verbal response- disoriented (4); best motor response- obeys commands (6). --08:12 Rian Forte R.N. 08:05 02/13/17. BP: 151/54 (regular adult cuff) taken on the right arm, while lying. HR: 65. RR: 16. O2 saturation: 100% on room air. Temp: 97.2 F (oral). Huffman-Joseph pain scale: 6/10. --08:12 Rian Forte R.N. Weight: 68 kg estimated. Height/Length: 64 inches Estimated. BMI: 25.8. --08:12 Rian Forte R.N. Medications Atorvastatin Calcium Oral (Tablet 40 mg) 1/2 tablet, daily. AzaTHIOprine Oral (Tablet 50 mg) 2 tablets, daily. --08:09 Rian Forte R.N. Calcarb 600/D Oral (Tablet 600-400 mg-unit) 2 tablets, daily. Diltiazem HCl Oral 300 mg, daily. Donepezil HCl Oral (Tablet 5 mg), daily. Hydrochlorothiazide Oral (Tablet 12.5 mg) 1 tablet, daily. Hydrochlorothiazide Oral 25 mg, daily. Klor-Con Oral 10 mEq, bid (take 2 tabs). Ondansetron HCl Oral (Tablet 8 mg) 1 tablet, Q 8hrs. Sertraline HCl Oral (Tablet 50 mg) 1 tablet, daily. Ventolin HFA Inhalation 2 puffs, Q 4-6hrs. Vitamin B-12 Oral (Tablet 500 mcg) 1 tablet, daily. Vitamin D3 Oral (Tablet 1000 unit) 2 tablets, daily. --08:09 Rian Forte R.N. Allergies Clarithromycin. Erythromycin. Latex. Penicillins. --08:09 Rian Forte R.N. History Historian: EMS. Arrived (A-47). Occurred (SNF - [facility] - Dementia unit). SOCIAL HX: No alcohol use or drug use. --08:12 Rian Forte R.N. PROBLEMS: Dehydration. Hip Fracture. Depression. Autoimmune hepatitis. Diabetes Mellitus Type 2. Rheumatoid Arthritis. Hypercholesterolemia. Hyperlipidemia. Dementia. Hypertension. Fall. Contusion. --08:10 Rian Forte R.N. ADDITIONAL SURGERIES: Hip Surgery. --08:10 Rian Forte R.N. Interventions To treatment room. --08:12 Rian Forte R.N. PHYSICAL ASSESSMENT late entry -0803. To room via stretcher. GENERAL / NEURO / PSYCH: Appears in pain. [place] Coma Scale: 14- eyes open spontaneously (4); best verbal response- disoriented (4); best motor response- obeys commands (6). The patient is disoriented to place, time and situation. HEENT: Pupils equal, round and reactive to light. Head non-tender. RESPIRATORY: Respirations not labored. Chest nontender. Breath sounds within normal limits. CVS: Pulses within normal limits. Capillary refill less than 2 seconds. GI / : Abdomen soft and nontender. EXTREMITIES: ( Right hip & lateral thigh swelling and bruising, guarding. Pt normally uses a w/c for mobility.). SKIN: Skin is warm and dry. --08:23 Rian Forte R.N. NURSING PROGRESS NOTES late entry -08:12. Reassurance given. Two patient identifiers checked. Call light placed in reach. Side rails up x 2. Bed placed in lowest position. Brakes of bed on. Patient ready for evaluation- chart flagged. --08:24 Rian Forte R.N. EKG time: (0841). EKG was ordered, performed by a tech and shown to the ED physician. --08:44 Abhinav Lima ER Tech1 08:40 02/13/2017 Site #1 started via IV in the right antecubital space with an 20g angiocath, with aseptic technique and good blood return; one attempt. Blood drawn: rainbow set. Labeled in the presence of the patient and sent to the lab. Saline lock flushed with 10 mL saline. --08:58 Rian Forte R.N. late entry -09:25. ( Family member is here at the bedside.). --10:05 Rian Forte R.N. 10:03 02/13/17. BP: 129/50. HR: 72. RR: 18. O2 saturation: 100% on room air. Huffman-Joseph pain scale: 4/10. --10:05 Rian Forte R.N. 10:45 02/13/17. ( Pt. is confused, but mouth was dry, had family hand her a wet toothette, which she did use, eventually. Pt has toys to play with to occupy her time.). --10:45 Sonia Bee R.N. 11:00 02/13/2017 BACTRIM SUSPENSION (Sulfamethoxazole-Trimethoprim) PO Oral Suspension 20 mL given. Allergies verified and confirmed 5 rights. --11:00 Rian Forte R.N. DISPOSITION / DISCHARGE Report was given to a nurse via a phone call. Report included patient's care, treatment, medications, reviewed medication reconcilliation, and condition (including any recent changes or anticipated changes). All questions were answered. Report was acknowledged. ([facility] RN). --11:05 Rian Forte R.N. 11:18 02/13/2017 Site #1 removed upon discharge. Bandage applied. --11:27 Rian Forte R.N. Departure time: 1120. Condition at departure: unchanged and stable. Teaching performed with the family. Discharge instructions provided and reviewed with the family. Reviewed medication(s). Family verbalized understanding. Written instructions provided in Austrian. The patient was discharged by the physician. She was discharged to the snf and accompanied by family. She left the Emergency Department in a wheelchair and via private vehicle. Family member driving. --11:31 Rian Forte R.N. 11:00 02/13/17. BP: 115/92 (regular adult cuff) taken on the left arm, while lying. HR: 79. RR: 18. O2 saturation: 99% on room air. Temp: 97.3 F (tympanic). Huffman-Joseph pain scale: 10/01. --11:31 Rian Forte R.N. Locked/Released at 02/13/2017 11:31 by Rian Forte R.N.
--- NOTE | 2017-02-13 10:34 | ED NURSING NOTES ---
Clinical Report - Nurses [facility] [address] [place] [address] 02/13/2017 8:03 Patient: HEATHER KAISER TRIAGE Triage time 08:03. Acuity: LEVEL 3. Chief Complaint: FALL (She has fallen multiple times in the past 2 days from her w/c. She has multiple bruises and swellilng in the right hip and lateral thigh, guarding the hip.). SEPSIS SCREEN: Sepsis Screen. Negative (no infection suspected/documented). RUCHI COMA SCORE: [place] Coma Scale: 14- eyes open spontaneously (4); best verbal response- disoriented (4); best motor response- obeys commands (6). --08:12 Rian Forte R.N. 08:05 02/13/17. BP: 151/54 (regular adult cuff) taken on the right arm, while lying. HR: 65. RR: 16. O2 saturation: 100% on room air. Temp: 97.2 F (oral). Huffman-Joseph pain scale: 6/10. --08:12 Rian Forte R.N. Weight: 68 kg estimated. Height/Length: 64 inches Estimated. BMI: 25.8. --08:12 Rian Forte R.N. Medications Atorvastatin Calcium Oral (Tablet 40 mg) 1/2 tablet, daily. AzaTHIOprine Oral (Tablet 50 mg) 2 tablets, daily. --08:09 Rian Forte R.N. Calcarb 600/D Oral (Tablet 600-400 mg-unit) 2 tablets, daily. Diltiazem HCl Oral 300 mg, daily. Donepezil HCl Oral (Tablet 5 mg), daily. Hydrochlorothiazide Oral (Tablet 12.5 mg) 1 tablet, daily. Hydrochlorothiazide Oral 25 mg, daily. Klor-Con Oral 10 mEq, bid (take 2 tabs). Ondansetron HCl Oral (Tablet 8 mg) 1 tablet, Q 8hrs. Sertraline HCl Oral (Tablet 50 mg) 1 tablet, daily. Ventolin HFA Inhalation 2 puffs, Q 4-6hrs. Vitamin B-12 Oral (Tablet 500 mcg) 1 tablet, daily. Vitamin D3 Oral (Tablet 1000 unit) 2 tablets, daily. --08:09 Rian Forte R.N. Allergies Clarithromycin. Erythromycin. Latex. Penicillins. --08:09 Rian Forte R.N. History Historian: EMS. Arrived (A-47). Occurred (SNF - [facility] - Dementia unit). SOCIAL HX: No alcohol use or drug use. --08:12 Rian Forte R.N. PROBLEMS: Dehydration. Hip Fracture. Depression. Autoimmune hepatitis. Diabetes Mellitus Type 2. Rheumatoid Arthritis. Hypercholesterolemia. Hyperlipidemia. Dementia. Hypertension. Fall. Contusion. --08:10 Rian Forte R.N. ADDITIONAL SURGERIES: Hip Surgery. --08:10 Rian Forte R.N. Interventions To treatment room. --08:12 Rian Forte R.N. PHYSICAL ASSESSMENT late entry -0803. To room via stretcher. GENERAL / NEURO / PSYCH: Appears in pain. [place] Coma Scale: 14- eyes open spontaneously (4); best verbal response- disoriented (4); best motor response- obeys commands (6). The patient is disoriented to place, time and situation. HEENT: Pupils equal, round and reactive to light. Head non-tender. RESPIRATORY: Respirations not labored. Chest nontender. Breath sounds within normal limits. CVS: Pulses within normal limits. Capillary refill less than 2 seconds. GI / : Abdomen soft and nontender. EXTREMITIES: ( Right hip & lateral thigh swelling and bruising, guarding. Pt normally uses a w/c for mobility.). SKIN: Skin is warm and dry. --08:23 Rian Forte R.N. NURSING PROGRESS NOTES late entry -08:12. Reassurance given. Two patient identifiers checked. Call light placed in reach. Side rails up x 2. Bed placed in lowest position. Brakes of bed on. Patient ready for evaluation- chart flagged. --08:24 Rian Forte R.N. EKG time: (0841). EKG was ordered, performed by a tech and shown to the ED physician. --08:44 Abhinav Lima ER Tech1 08:40 02/13/2017 Site #1 started via IV in the right antecubital space with an 20g angiocath, with aseptic technique and good blood return; one attempt. Blood drawn: rainbow set. Labeled in the presence of the patient and sent to the lab. Saline lock flushed with 10 mL saline. --08:58 Rian Forte R.N. late entry -09:25. ( Family member is here at the bedside.). --10:05 Rian Forte R.N. 10:03 02/13/17. BP: 129/50. HR: 72. RR: 18. O2 saturation: 100% on room air. Huffman-Joseph pain scale: 4/10. --10:05 Rian Forte R.N. 10:45 02/13/17. ( Pt. is confused, but mouth was dry, had family hand her a wet toothette, which she did use, eventually. Pt has toys to play with to occupy her time.). --10:45 Sonia Bee R.N. 11:00 02/13/2017 BACTRIM SUSPENSION (Sulfamethoxazole-Trimethoprim) PO Oral Suspension 20 mL given. Allergies verified and confirmed 5 rights. --11:00 Rian Forte R.N. DISPOSITION / DISCHARGE Report was given to a nurse via a phone call. Report included patient's care, treatment, medications, reviewed medication reconcilliation, and condition (including any recent changes or anticipated changes). All questions were answered. Report was acknowledged. ([facility] - Dementia Unit RN). --11:05 Rian Forte R.N. 11:18 02/13/2017 Site #1 removed upon discharge. Bandage applied. --11:27 Rian Forte R.N. Departure time: 1120. Condition at departure: unchanged and stable. Teaching performed with the family. Discharge instructions provided and reviewed with the family. Reviewed medication(s). Family verbalized understanding. Written instructions provided in Nauruan. The patient was discharged by the physician. She was discharged to the senior living and accompanied by family. She left the Emergency Department in a wheelchair and via private vehicle. Family member driving. --11:31 Rian Forte R.N. 11:00 02/13/17. BP: 115/92 (regular adult cuff) taken on the left arm, while lying. HR: 79. RR: 18. O2 saturation: 99% on room air. Temp: 97.3 F (tympanic). Huffman-Joseph pain scale: 10/01. --11:31 Rian Forte R.N. Locked/Released at 02/13/2017 11:31 by Rian Forte R.N.
--- NOTE | 2017-02-13 10:35 | ED ORDER SUMMARY ---
..... Patient: HEATHER KAISER OrderSheet [facility] VisitID: [id number] [place] [address] 81y, F Registration Date/Time: 02/13/2017 ORDER SHEET Weight: 68 kg (estimated) Allergies: Clarithromycin, Erythromycin, Latex, Penicillins GENERAL ORDERS: Hip 2V Right w AP Pelvis Urgent (08:02/13/2017 Syed SOUZA) (Ack 8:28 Jerome) (9:54 JSimbeck R.N.) Lockstitcher (Continuous) (:02/13/2017 Syed OSUZA) (8:57 JSimbeck R.N.) Chest 1V Urgent (:02/13/2017 Syed SOUZA) (Ack 8:28 Jerome) (9:55 JSimbeck R.N.) Cardiac Panel Stat (:02/13/2017 Syed SOUZA) (Ack 8:28 Jerome) (8:57 JSimbeck R.N.) UA-Culture if indicated Urgent (08:02/13/2017 Syed SOUZA) (Ack 8:28 Jerome) (8:57 JSimbeck R.N.) PT with INR Urgent (08:02/13/2017 Syed SOUZA) (Ack 8:28 Jerome) (8:57 JSimbeck R.N.) Pulse oximeter (:02/13/2017 Syed SOUZA) (8:57 JSimbeck R.N.) EKG - ER Stat (08:02/13/2017 Syed SOUZA) (8:44 PWeiler ER Tech1) TSH Urgent (08:02/13/2017 Syed SOUZA) (Ack 8:28 Bellarner) (8:57 JSimbeck R.N.) MEDICATION ORDERS: Macrobid PO 100 mg (NOW) (10:31 02/13/2017 Kings Alfaro) (Cancelled: Duplicate Order10:53 Kings Alfaro) Bactrim Suspension PO 20 mL (NOW) (10:59 02/13/2017 Luis Hope verbal order read back to Kings Alfaro) (11:00 Luis Hope) IV FLUIDS: IV Saline Lock (08:23 02/13/2017 Syed SOUZA) (8:58 Luis Hope) ORDER SHEET NOTES: [Electronically signed by Rian Forte R.N. (11:02/13/2017)] [Electronically signed by Estuardo Song Dr. (12:07 02/13/2017)] [Electronically locked/signed by Rian Forte R.N. (11:02/13/2017)]
--- NOTE | 2017-02-13 10:35 | ED ORDER SUMMARY ---
..... Patient: HEATHER KAISER OrderSheet [facility] VisitID: [id number] [place] [address] 81y, F Registration Date/Time: 02/13/2017 ORDER SHEET Weight: 68 kg (estimated) Allergies: Clarithromycin, Erythromycin, Latex, Penicillins GENERAL ORDERS: Hip 2V Right w AP Pelvis Urgent (08:02/13/2017 Syed SOUZA) (Ack 8:28 Jerome) (9:54 JSimbeck R.N.) Electronic Organ Technician (Continuous) (:02/13/2017 Syed SOUZA) (8:57 JSimbeck R.N.) Chest 1V Urgent (:02/13/2017 Syed SOUZA) (Ack 8:28 Jerome) (9:55 JSimbeck R.N.) Cardiac Panel Stat (:02/13/2017 Syed SOUZA) (Ack 8:28 Jerome) (8:57 JSimbeck R.N.) UA-Culture if indicated Urgent (08:02/13/2017 Syed SOUZA) (Ack 8:28 Jerome) (8:57 JSimbeck R.N.) PT with INR Urgent (08:02/13/2017 Syed SOUZA) (Ack 8:28 Jerome) (8:57 JSimbeck R.N.) Pulse oximeter (:02/13/2017 Syed SOUZA) (8:57 JSimbeck R.N.) EKG - ER Stat (08:02/13/2017 Syed SOUZA) (8:44 PWeiler ER Tech1) TSH Urgent (08:02/13/2017 Syed SOUZA) (Ack 8:28 Bellarner) (8:57 JSimbeck R.N.) MEDICATION ORDERS: Macrobid PO 100 mg (NOW) (10:31 02/13/2017 Kings Alfaro) (Cancelled: Duplicate Order10:53 Kings Alfaro) Bactrim Suspension PO 20 mL (NOW) (10:59 02/13/2017 Luis Hope verbal order read back to Kings Alfaro) (11:00 Luis Hope) IV FLUIDS: IV Saline Lock (08:23 02/13/2017 Syed SOUZA) (8:58 Luis Hope) ORDER SHEET NOTES: [Electronically signed by Rian Forte R.N. (11:02/13/2017)] [Electronically signed by Estuardo Song Dr. (12:07 02/13/2017)] [Electronically locked/signed by Rian Forte R.N. (11:02/13/2017)]
--- NOTE | 2017-02-13 10:57 | DIAGNOSTIC IMAGING REPORT ---
PROCEDURE: XR HIP 2VW W W/O AP PELVIS-RT INDICATION: TRAUMA/INJURY TECHNIQUE: AP view of the pelvis and hips with lateral view of the right hip. COMPARISON: None. FINDINGS: RIGHT HIP: Decreased mineralization. Hip pin in place. No evidence of hardware failure. Intertrochanteric fracture shows mild healing. Femoral acetabular joint in normal position with minor degenerative change. PELVIS: Decreased mineralization. Pelvic rings are intact. No fractures. Normal alignment. There are degenerative change at the left hip joint. The visible bowel gas pattern and pelvic soft tissues appear normal. Mild lower lumbar degeneration. IMPRESSION: 1. Status post right hip pinning. No evidence of new fracture hardware failure. 2. Demineralization. 3. Intact pelvis.
--- NOTE | 2017-02-13 11:01 | DIAGNOSTIC IMAGING REPORT ---
PROCEDURE: XR CHEST 1 VIEW INDICATION: FALL TECHNIQUE: Single view chest. 09:18 hours COMPARISON: 08/23/2016 FINDINGS: Stable cardiomediastinal contour with ectatic thoracic aortic arch. No central venous congestion no acute consolidations, effusion, or pneumothorax. Intact osseous structures with degenerative changes in the thoracic spine. IMPRESSION: 1. Coarse interstitial markings may suggest senescent changes, chronic edema, or COPD. 2. No acute process.
--- NOTE | 2017-02-13 12:07 | ED MED RECONCILIATION SUMMARY ---
Patient: HEATHER KAISER Medication Reconciliation Report [facility] VisitID: [id number] [address] [place] [address] 81y, F Registration Date/Time: 02/13/2017 Weight: 68 kg Height/Length: 64 in. BMI: 25.8 ALLERGIES: Clarithromycin, Erythromycin, Latex, Penicillins The patient's Home Medications are listed below: CONTINUE TAKING THE FOLLOWING MEDICATIONS: Atorvastatin Calcium Oral (40 mg) 1/2 tablet, daily AzaTHIOprine Oral (50 mg) 2 tablets, daily Calcarb 600/D Oral (600-400 mg-unit) 2 tablets, daily Diltiazem HCl Oral 300 mg, daily Donepezil HCl Oral (5 mg), daily Hydrochlorothiazide Oral (12.5 mg) 1 tablet, daily Hydrochlorothiazide Oral 25 mg, daily Klor-Con Oral 10 mEq, bid, take 2 tabs Ondansetron HCl Oral (8 mg) 1 tablet, Q 8hrs Sertraline HCl Oral (50 mg) 1 tablet, daily Ventolin HFA Inhalation 2 puffs, Q 4-6hrs Vitamin B-12 Oral (500 mcg) 1 tablet, daily Vitamin D3 Oral (1000 unit) 2 tablets, daily The source(s) of the original Home Medication information: Not obtained. The following Medications were given to the patient in the Emergency Department: BACTRIM SUSPENSION [PO] PO 20 mL, administered: 02/13/2017 11:00:00 AM The following Medications were prescribed to the patient: Bactrim Liquid 40mg/200mg/5 mL: every 12 hours for 7 days. No refill. Substitution is permissible.(20 mL PO. Disp sufficient quant.) -- Estuardo Song Dr. Tramadol 50 mg: take 1 orally every 8 hours as needed for pain and stiffness. Dispense twenty (20). No refills. -- Estuardo Song Dr.
--- NOTE | 2017-02-13 12:07 | ED MAR SUMMARY ---
..... Medication Administration Record [facility] [address] [place] [address] Patient: HEATHER KAISER Visit ID: [id number] 81y, F Weight: 68.0 kg Height/Length: 64 in BMI: 25.8 ALLERGIES: Clarithromycin, Erythromycin, Latex, Penicillins Given 11:00 02/13/2017 Rian Forte R.N. Medication Administered: BACTRIM SUSPENSION [PO] (SULFAMETHOXAZOLE-TRIMETHOPRIM), Dose: 20 mL Oral Suspension PO. Medication Ordered: Bactrim Suspension PO 20 mL (NOW).
--- NOTE | 2017-02-13 12:07 | ED MAR SUMMARY ---
..... Medication Administration Record [facility] [address] [place] [address] Patient: HEATHER KAISER Visit ID: [id number] 81y, F Weight: 68.0 kg Height/Length: 64 in BMI: 25.8 ALLERGIES: Clarithromycin, Erythromycin, Latex, Penicillins Given 11:00 02/13/2017 Rian oFrte R.N. Medication Administered: BACTRIM SUSPENSION [PO] (SULFAMETHOXAZOLE-TRIMETHOPRIM), Dose: 20 mL Oral Suspension PO. Medication Ordered: Bactrim Suspension PO 20 mL (NOW).
--- NOTE | 2017-02-13 12:07 | ED DISCHARGE INSTRUCTIONS ---
Patient: HEATHER KAISER General Instructions [facility] VisitID: [id number] [place] [address] 81y, F Registration Date/Time: 02/13/2017 02/13/2017 08:05 BP: 151/54. HR: 65. RR: 16. O2 saturation: 100%. Temp: 97.2 F. Huffman-Joseph pain scale: 6/10. Hypertensive. Oxygen saturation normal. Essential hypertension. Acute urinary tract infection. Single contusion to the right hip. INSTRUCTIONS Warnings: GENERAL WARNINGS: Return or contact your physician immediately if your condition worsens or changes unexpectedly, if not improving as expected, or if other problems arise. SPECIFICALLY, return if you develop weakness, numbness, tingling, pain or incontinence. Your Current Medications: CONTINUE TAKING THE FOLLOWING MEDICATIONS: Atorvastatin Calcium Oral : Tablet 40 mg, 1/2 tablet daily. AzaTHIOprine Oral : Tablet 50 mg, 2 tablets daily. Calcarb 600/D Oral : Tablet 600-400 mg-unit, 2 tablets daily. Diltiazem HCl Oral : 300 mg daily. Donepezil HCl Oral : Tablet 5 mg, daily. Hydrochlorothiazide Oral : Tablet 12.5 mg, 1 tablet daily. Hydrochlorothiazide Oral : 25 mg daily. Klor-Con Oral : 10 mEq bid, take 2 tabs. Ondansetron HCl Oral : Tablet 8 mg, 1 tablet Q 8hrs. Sertraline HCl Oral : Tablet 50 mg, 1 tablet daily. Ventolin HFA Inhalation : 2 puffs Q 4-6hrs. Vitamin B-12 Oral : Tablet 500 mcg, 1 tablet daily. Vitamin D3 Oral : Tablet 1000 unit, 2 tablets daily. Prescription Medications: Bactrim Liquid 40mg/200mg/5 mL: every 12 hours for 7 days. No refill. Substitution is permissible. (20 mL PO. Disp sufficient quant.) Tramadol 50 mg: take 1 orally every 8 hours as needed for pain and stiffness. Dispense twenty (20). No refills. Follow-up: Return to the emergency department as needed. Follow up with your doctor in three days. Reason for referral: recheck today's concerns. Summary of care provided to patient via paper. Screening today revealed the patient's blood pressure to be in the hypertensive range. Blood pressure screening was not performed during this visit because the patient has an active diagnosis of hypertension. The patient should follow up with a primary care provider for blood pressure management. Understanding of the discharge instructions verbalized by patient. ADDITIONAL INFORMATION Hip Contusion You have a contusion of the hip. This is a bruise with swelling and some bleeding under the skin. There are no fracture (broken bone) seen on the x-ray. This injury takes a few days to a few weeks to heal. Home Care If walking causes pain, use crutches or a walker until you can walk without pain. These items can be rented at most pharmacies and orthopedic supply stores. Apply an ice pack (ice cubes in a plastic bag, wrapped in a towel) over the injured area for 20 minutes every 1-2 hours the firstday. You should continue with ice packs 3-4 times a day for the next two days. Continue the use of ice packs for relief of pain and swelling as needed. You may use acetaminophen (Tylenol) or ibuprofen (Motrin, Advil) to control pain, unless another pain medicine was prescribed. [NOTE: If you have chronic liver or kidney disease or ever had a stomach ulcer or GI bleeding, talk with your doctor before using these medicines.] If you are not able to get to the bathroom easily or take care of your meal preparation, home health care may be available to provide in-home nursing services. Check with your doctor, the hospital's social service department or through private nursing agencies to see if your insurance will cover this kind of care. Follow Up Follow up with your doctor or as advised by our staff if your symptoms do not begin to improve after one week. A repeat x-ray or a CT-scan may be needed to check again for a fracture. [NOTE: If X-rays were taken, they will be reviewed by a radiologist. You will be notified of any new findings that may affect your care.] Get Prompt Medical Attention Get prompt medical attention if any of the following occur: Increased swelling or increased bruising Pain becomes worse Decreased ability to bear weight on the injured side Swelling or pain below your knee Chest pain or shortness of breath High Blood Pressure -- To Be Confirmed [No Tx] Your blood pressure was higher today than normal. Sometimes anxiety or pain can cause a temporary rise in blood pressure that later returns to normal. If your blood pressure is high on one measurement, this does not mean that you have hypertension (a chronic illness). However, you must have your blood pressure measured again within the next few days to find out if its still high. A normal blood pressure is 120/80 or less. The first (top) number is the "systolic" pressure. The second (bottom) number is the "diastolic" pressure. Hypertension exists when either the top number is 140 or higher, OR the bottom number is 90 or higher on repeated measurements. Blood pressure in the range of 120-140 (systolic) or 80-89 (diastolic) is considered "pre-hypertension". This means your are at risk for getting hypertension. You should have regular blood pressure checks to be sure your blood pressure is not rising. Home Care: Measure your blood pressure on 3 different days and write down the results. This can be done at your doctor's office or this facility. Some pharmacies and grocery stores offer automated blood pressure machines for your use. Follow Up: If your blood pressure is "high" (over 120/80) on 2 out of 3 days, you will need to follow up with your doctor for further evaluation and treatment. DO NOT PUT THIS OFF! Untreated high blood pressure increases the risk for heart attack, also known as acute myocardial infarction, or AMI, and stroke. It is a treatable condition. Get Prompt Medical Attention if any of the following occur: Chest pain or shortness of breath Severe headache Throbbing or rushing sound in the ears Nosebleed Sudden severe abdominal pain Extreme drowsiness, confusion or fainting Dizziness or vertigo (dizziness with spinning sensation) Weakness of an arm or leg or one side of the face Difficulty with speech or vision Bladder Infection,Female (Adult) A bladder infection ("cystitis" or "UTI") usually causes a constant urge to urinate and a burning when passing urine. Urine may be cloudy, smelly or dark. There may be pain in the lower abdomen. A bladder infection occurs when bacteria from the vaginal area enter the bladder opening (urethra). This can occur from sexual intercourse, wearing tight clothing, dehydration and other factors. Home Care: Drink lots of fluids (at least 6-8 glasses a day, unless you must restrict fluids for other medical reasons). This will force the medicine into your urinary system and flush the bacteria out of your body. Avoid sexual intercourse until your symptoms are gone. Avoid caffeine, alcohol and spicy foods. These can irritate the bladder. A bladder infection is treated with antibiotics. You may also be given Pyridium (generic = phenazopyridine) to reduce the burning sensation. This medicine will cause your urine to become a bright orange color. The orange urine may stain clothing. You may wear a pad or panty-liner to protect clothing. Preventing Future Infections: Always wipe from front to back after a bowel movement. Keep the genital area clean and dry. Drink plenty of fluids each day to avoid dehydration. Both sexual partners should wash before intercourse. Urinate right after intercourse to flush out the bladder. Wear cotton underwear and cotton-lined panty hose; avoid tight-fitting pants. If you are on control pills and are having frequent bladder infections, discuss with your doctor. Follow Up: Return to this facility or see your doctor if ALL symptoms are not gone after three days of treatment. Get Prompt Medical Attention if any of the following occur: Fever of 100.4F (38C) or higher, or as directed by your healthcare provider No improvement by the third day of treatment Increasing back or abdominal pain Repeated vomiting; unable to keep medicine down Weakness, dizziness or fainting Vaginal discharge Pain, redness or swelling in the labia (outer vaginal area) Sulfamethoxazole, Trimethoprim Oral suspension What is this medicine? SULFAMETHOXAZOLE; TRIMETHOPRIM or SMX-TMP (suhl fuh meth OK bryce zohl; trye METH oh prim) is a combination of a sulfonamide antibiotic and a second antibiotic, trimethoprim. It is used to treat or prevent certain kinds of bacterial infections.It will not work for colds, flu, or other viral infections. How should I use this medicine? Take this suspension by mouth. Follow the directions on the prescription label. Shake the bottle well before taking. Use a specially marked spoon or container to measure your medicine. Ask your pharmacist if you do not have one. Household spoons are not accurate. Take your doses at regular intervals. Do not take more medicine than directed. Talk to your a p mechanic regarding the use of this medicine in children. Special care may be needed. While this drug may be prescribed for children as young as 2 months of age for selected conditions, precautions do apply. What side effects may I notice from receiving this medicine? Side effects that you should report to your doctor or health childbirth and infant care teacher as soon as possible: allergic reactions like skin rash or hives, swelling of the face, lips, or tongue breathing problems fever or chills, sore throat irregular heartbeat, chest pain joint or muscle pain pain or difficulty passing urine red pinpoint spots on skin redness, blistering, peeling or loosening of the skin, including inside the mouth unusual bleeding or bruising unusual weakness or tiredness yellowing of the eyes or skin Side effects that usually do not require medical attention (report to your doctor or health childbirth and infant care teacher if they continue or are bothersome): diarrhea dizziness headache loss of appetite nausea, vomiting nervousness What may interact with this medicine? Do not take this medicine with any of the following medications aminobenzoate potassium dofetilide metronidazole This medicine may also interact with the following medications NATALIE inhibitors like benazepril, enalapril, lisinopril, and ramipril cyclosporine digoxin diuretics indomethacin medicines for diabetes methenamine methotrexate phenytoin potassium supplements pyrimethamine sulfinpyrazone tricyclic antidepressants warfarin What if I miss a dose? If you miss a dose, take it as soon as you can. If it is almost time for your next dose, take only that dose. Do not take double or extra doses. Where should I keep my medicine? Keep out of the reach of children. Store at room temperature between 15 and 25 degrees C (59 and 77 degrees F). Protect from light and moisture. Throw away any unused medicine after the expiration date. What should I tell my health care provider before I take this medicine? They need to know if you have any of these conditions: anemia asthma being treated with anticonvulsants if you frequently drink alcohol containing drinks kidney disease liver disease low level of folic acid or [id number] dehydrogenase poor nutrition or malabsorption porphyria severe allergies thyroid disorder an unusual or allergic reaction to sulfamethoxazole, trimethoprim, sulfa drugs, other medicines, foods, dyes, or preservatives or trying to get breast-feeding What should I watch for while using this medicine? Tell your doctor or health childbirth and infant care teacher if your symptoms do not improve. Drink several glasses of water a day to reduce the risk of kidney problems. Do not treat diarrhea with over the counter products. Contact your doctor if you have diarrhea that lasts more than 2 days or if it is severe and watery. This medicine can make you more sensitive to the sun. Keep out of the sun. If you cannot avoid being in the sun, wear protective clothing and use a sunscreen. Do not use sun lamps or tanning beds/booths. Tramadol Hydrochloride Oral tablet What is this medicine? TRAMADOL (TRA ma dole) is a pain reliever. It is used to treat moderate to severe pain in adults. How should I use this medicine? Take this medicine by mouth with a full glass of water. Follow the directions on the prescription label. If the medicine upsets your stomach, take it with food or milk. Do not take more medicine than you are told to take. Talk to your a p mechanic regarding the use of this medicine in children. Special care may be needed. What side effects may I notice from receiving this medicine? Side effects that you should report to your doctor or health childbirth and infant care teacher as soon as possible: allergic reactions like skin rash, itching or hives, swelling of the face, lips, or tongue breathing difficulties, wheezing confusion itching light headedness or fainting spells redness, blistering, peeling or loosening of the skin, including inside the mouth seizures Side effects that usually do not require medical attention (report to your doctor or health childbirth and infant care teacher if they continue or are bothersome): constipation dizziness drowsiness headache nausea, vomiting What may interact with this medicine? Do not take this medicine with any of the following medications: MAOIs like Carbex, Eldepryl, Marplan, Nardil, and Parnate This medicine may also interact with the following medications: alcohol or medicines that contain alcohol antihistamines benzodiazepines bupropion carbamazepine or oxcarbazepine clozapine cyclobenzaprine digoxin furazolidone linezolid medicines for depression, anxiety, or psychotic disturbances medicines for migraine headache like almotriptan, eletriptan, frovatriptan, naratriptan, rizatriptan, sumatriptan, zolmitriptan medicines for pain like pentazocine, buprenorphine, butorphanol, meperidine, nalbuphine, and propoxyphene medicines for sleep muscle relaxants naltrexone phenobarbital phenothiazines like perphenazine, thioridazine, chlorpromazine, mesoridazine, fluphenazine, prochlorperazine, promazine, and trifluoperazine procarbazine warfarin What if I miss a dose? If you miss a dose, take it as soon as you can. If it is almost time for your next dose, take only that dose. Do not take double or extra doses. Where should I keep my medicine? Keep out of the reach of children. Store at room temperature between 15 and 30 degrees C (59 and 86 degrees F). Keep container tightly closed. Throw away any unused medicine after the expiration date. What should I tell my health care provider before I take this medicine? They need to know if you have any of these conditions: brain tumor depression drug abuse or addiction head injury if you frequently drink alcohol containing drinks kidney disease or trouble passing urine liver disease lung disease, asthma, or breathing problems seizures or epilepsy suicidal thoughts, plans, or attempt; a previous suicide attempt by you or a family member an unusual or allergic reaction to tramadol, codeine, other medicines, foods, dyes, or preservatives or trying to get breast-feeding What should I watch for while using this medicine? Tell your doctor or health childbirth and infant care teacher if your pain does not go away, if it gets worse, or if you have new or a different type of pain. You may develop tolerance to the medicine. Tolerance means that you will need a higher dose of the medicine for pain relief. Tolerance is normal and is expected if you take this medicine for a long time. Do not suddenly stop taking your medicine because you may develop a severe reaction. Your body becomes used to the medicine. This does NOT mean you are addicted. Addiction is a behavior related to getting and using a drug for a non-medical reason. If you have pain, you have a medical reason to take pain medicine. Your doctor will tell you how much medicine to take. If your doctor wants you to stop the medicine, the dose will be slowly lowered over time to avoid any side effects. You may get drowsy or dizzy. Do not drive, use machinery, or do anything that needs mental alertness until you know how this medicine affects you. Do not stand or sit up quickly, especially if you are an older patient. This reduces the risk of dizzy or fainting spells. Alcohol can increase or decrease the effects of this medicine. Avoid alcoholic drinks. You may have constipation. Try to have a bowel movement at least every 2 to 3 days. If you do not have a bowel movement for 3 days, call your doctor or health childbirth and infant care teacher. Your mouth may get dry. Chewing sugarless gum or sucking hard candy, and drinking plenty of water may help. Contact your doctor if the problem does not go away or is severe. You have been given the following additional information: Hip Contusion Hypertension, To Be Confirmed Bladder Infection, Female (Adult) Sulfamethoxazole, Trimethoprim Oral suspension Tramadol Hydrochloride Oral tablet (Electronically signed by Estuardo Song Dr. 02/13/2017 12:07)
--- NOTE | 2017-02-13 12:07 | ED MED RECONCILIATION SUMMARY ---
Patient: HEATHER KAISER Medication Reconciliation Report [facility] VisitID: [id number] [place] [address] 81y, F Registration Date/Time: 02/13/2017 Weight: 68 kg Height/Length: 64 in. BMI: 25.8 ALLERGIES: Clarithromycin, Erythromycin, Latex, Penicillins The patient's Home Medications are listed below: CONTINUE TAKING THE FOLLOWING MEDICATIONS: Atorvastatin Calcium Oral (40 mg) 1/2 tablet, daily AzaTHIOprine Oral (50 mg) 2 tablets, daily Calcarb 600/D Oral (600-400 mg-unit) 2 tablets, daily Diltiazem HCl Oral 300 mg, daily Donepezil HCl Oral (5 mg), daily Hydrochlorothiazide Oral (12.5 mg) 1 tablet, daily Hydrochlorothiazide Oral 25 mg, daily Klor-Con Oral 10 mEq, bid, take 2 tabs Ondansetron HCl Oral (8 mg) 1 tablet, Q 8hrs Sertraline HCl Oral (50 mg) 1 tablet, daily Ventolin HFA Inhalation 2 puffs, Q 4-6hrs Vitamin B-12 Oral (500 mcg) 1 tablet, daily Vitamin D3 Oral (1000 unit) 2 tablets, daily The source(s) of the original Home Medication information: Not obtained. The following Medications were given to the patient in the Emergency Department: BACTRIM SUSPENSION [PO] PO 20 mL, administered: 02/13/2017 11:00:00 AM The following Medications were prescribed to the patient: Bactrim Liquid 40mg/200mg/5 mL: every 12 hours for 7 days. No refill. Substitution is permissible.(20 mL PO. Disp sufficient quant.) -- Estuardo Song Dr. Tramadol 50 mg: take 1 orally every 8 hours as needed for pain and stiffness. Dispense twenty (20). No refills. -- Estuardo Song Dr.
== END 2017-02-13 11:20 | disposition home or self-care (01) ==
LOC: ED SRH 08:01
DX: S70.01XA Contusion of right hip, initial encounter (principal); W19.XXXA Unspecified fall, initial encounter; Y93.9 Activity, unspecified; Y92.019 Unspecified place in single-family (private) house as the place of occurrence of the external cause; Y99.9 Unspecified external cause status; N39.0 Urinary tract infection, site not specified; I10 Essential (primary) hypertension; E78.5 Hyperlipidemia, unspecified; E78.00 Pure hypercholesterolemia, unspecified; E11.9 Type 2 diabetes mellitus without complications